=== PATIENT | male | born 1950 | race Caucasian/White ===

== ENCOUNTER → 2016-03-28 | Outpatient (REF) | payer MEDICARE ==
[2016-03-28 16:49] LABS: BASO % 0.3 % (0.0-1.0); EOS # 0.2 K/mm3 (0.0-0.50); EOS % 3.9 % (0.0-3.0); LARGE UNSTAINED CELL # 0.2 K/mm3 (0.0-0.4); LARGE UNSTAINED CELL % 3.1 % (0.0-4.0); LYMPH # 1.2 K/mm3 (1.5-4.5); LYMPH % 20.2 % (24.0-44.0); MEAN CORPUSCULAR HEMOGLOBIN 30.6 pg (27.0-33.0); MEAN CORPUSCULAR HGB CONC 34.4 g/dl (32.0-36.5); MEAN CORPUSCULAR VOLUME 88.8 fl (80.0-96.0); MONO # 0.5 K/mm3 (0.0-0.8); MONO % 8.1 % (0.0-5.0); NEUTROPHILS # 3.8 K/mm3 (1.8-7.7); NEUTROPHILS % 64.4 % (36.0-66.0); PLATELET COUNT, AUTOMATED 158 k/mm3 (150-450); RED CELL DISTRIBUTION WIDTH 12.4 % (11.5-14.5); WHITE BLOOD COUNT 5.8 K/mm3 (4.0-10.0)
[2016-03-28 16:59] LABS: ALBUMIN 4.2 GM/DL (3.2-5.2); ALKALINE PHOSPHATASE 87 U/L (45-117); ALT/SGPT 57 U/L (12-78); ANION GAP 8 MEQ/L (8-16); AST/SGOT 25 U/L (15-37); BILIRUBIN,TOTAL 0.5 MG/DL (0.2-1.0); BLOOD UREA NITROGEN 28 MG/DL (7-18); CALCIUM LEVEL 9.3 MG/DL (8.8-10.2); CARBON DIOXIDE LEVEL 32 MEQ/L (21-32); CHLORIDE LEVEL 101 MEQ/L (98-107); CHOLESTEROL LEVEL 198 MG/DL (<200); CREATININE FOR GFR 0.99 MG/DL (0.70-1.30); GLOMERULAR FILTRATION RATE > 60.0 (>49); GLUCOSE, FASTING 112 MG/DL (80-110); POTASSIUM SERUM 4.4 MEQ/L (3.5-5.1); SODIUM LEVEL 141 MEQ/L (136-145); TOTAL PROTEIN 7.2 GM/DL (6.4-8.2); TRIGLYCERIDES LEVEL 118 MG/DL (<150)
== END ==
LOC: M SFHCCAPE 08:38
PROVIDERS: ATTEND Physician Assistant
DX: I10 Essential (primary) hypertension (principal); E11.9 Type 2 diabetes mellitus without complications; E78.5 Hyperlipidemia, unspecified; Z12.5 Encounter for screening for malignant neoplasm of prostate
CPT/HCPCS: 80053; 80061; 82043; 83036; 84443; 85025; G0103

== ENCOUNTER → 2017-03-29 | Outpatient (REF) | payer MEDICARE, MEDICAID ==
[2017-03-29 19:38] LABS: ESTIMATED AVERAGE GLUCOSE 146 MG/DL (60-110); HEMOGLOBIN A1c 6.7 %
[2017-03-29 19:42] LABS: ALBUMIN 4.2 GM/DL (3.2-5.2); ALKALINE PHOSPHATASE 81 U/L (45-117); ALT/SGPT 41 U/L (12-78); ANION GAP 5 MEQ/L (8-16); AST/SGOT 22 U/L (7-37); BILIRUBIN,TOTAL 0.4 MG/DL (0.2-1.0); BLOOD UREA NITROGEN 29 MG/DL (7-18); CALCIUM LEVEL 9.3 MG/DL (8.8-10.2); CARBON DIOXIDE LEVEL 32 MEQ/L (21-32); CHLORIDE LEVEL 102 MEQ/L (98-107); CHOLESTEROL LEVEL 188 MG/DL (<200); CHOLESTEROL RISK RATIO 2.647 (<5); CREATININE FOR GFR 0.76 MG/DL (0.70-1.30); GLOMERULAR FILTRATION RATE > 60.0 (>49); GLUCOSE, FASTING 120 MG/DL (80-110); HDL CHOLESTEROL 71 MG/DL (>40); NON-HDL-C 117 MG/DL; POTASSIUM SERUM 4.3 MEQ/L (3.5-5.1); SODIUM LEVEL 139 MEQ/L (136-145); TOTAL PROTEIN 7.2 GM/DL (6.4-8.2); TRIGLYCERIDES LEVEL 100 MG/DL (<150)
== END ==
LOC: M SFHCCAPE 08:31
DX: I10 Essential (primary) hypertension (principal); E11.9 Type 2 diabetes mellitus without complications
CPT/HCPCS: 80053

== ENCOUNTER → 2017-10-08 | Outpatient (REF) | payer MEDICARE, MEDICAID ==
[2017-10-08 17:46] LABS: ALBUMIN 3.6 GM/DL (3.2-5.2); ALBUMIN/GLOBULIN RATIO 1.16 (1.00-1.93); ALKALINE PHOSPHATASE 77 U/L (45-117); ALT/SGPT 26 U/L (12-78); ANION GAP 9 MEQ/L (8-16); AST/SGOT 15 U/L (7-37); BILIRUBIN,TOTAL 0.3 MG/DL (0.2-1.0); BLOOD UREA NITROGEN 22 MG/DL (7-18); CALCIUM LEVEL 8.9 MG/DL (8.8-10.2); CARBON DIOXIDE LEVEL 27 MEQ/L (21-32); CHLORIDE LEVEL 108 MEQ/L (98-107); CHOLESTEROL LEVEL 146 MG/DL (<200); CHOLESTEROL RISK RATIO 2.561 (<5); GLOMERULAR FILTRATION RATE > 60.0 (>49); GLUCOSE, FASTING 107 MG/DL (70-100); HDL CHOLESTEROL 57 MG/DL (>40); LDL CHOLESTEROL 70.8 MG/DL (<100); NON-HDL-C 89 MG/DL; POTASSIUM SERUM 4.4 MEQ/L (3.5-5.1); SODIUM LEVEL 144 MEQ/L (136-145); TOTAL PROTEIN 6.7 GM/DL (6.4-8.2); TRIGLYCERIDES LEVEL 91 MG/DL (<150)
[2017-10-08 18:01] LABS: BASO # 0.1 10^3/uL (0.0-0.2); BASO % 1.1 % (0.0-1.0); EOS # 0.2 10^3/uL (0.0-0.50); EOS % 3.7 % (0.0-3.0); HEMOGLOBIN 14.5 g/dl (13.5-17.5); IMMATURE GRANULOCYTE % 0.3 % (0-3.0); LYMPH # 1.4 10^3/uL (1.5-4.5); LYMPH % 22.2 % (24.0-44.0); MEAN CORPUSCULAR HEMOGLOBIN 29.4 pg (27.0-33.0); MEAN CORPUSCULAR HGB CONC 32.2 g/dl (32.0-36.5); MEAN CORPUSCULAR VOLUME 91.1 fl (80.0-96.0); MONO # 0.7 10^3/uL (0.0-0.8); MONO % 10.7 % (0.0-5.0); NEUTROPHILS # 3.8 10^3/uL (1.8-7.7); PLATELET COUNT, AUTOMATED 161 10^3/uL (150-450); RED BLOOD COUNT 4.94 10^6/uL (4.30-6.10); RED CELL DISTRIBUTION WIDTH 12.7 % (11.5-14.5); WHITE BLOOD COUNT 6.2 10^3/uL (4.0-10.0)
[2017-10-08 18:47] LABS: ESTIMATED AVERAGE GLUCOSE 146 MG/DL (60-110); HEMOGLOBIN A1c 6.7 %
== END ==
LOC: M SFHCCAPE 07:57
DX: I10 Essential (primary) hypertension (principal); E11.9 Type 2 diabetes mellitus without complications
CPT/HCPCS: 84443

== ENCOUNTER → 2018-02-26 | Outpatient (CLI) | payer MEDICARE, MEDICAID | LOC: M CARPUL 10:13 | DX: R06.00 Dyspnea, unspecified (principal) | CPT/HCPCS: 93306 ==

== ENCOUNTER → 2018-03-25 | Outpatient (REF) | payer MEDICARE, MEDICAID ==
[2018-03-25 17:55] LABS: ALBUMIN 3.8 GM/DL (3.2-5.2); ALT/SGPT 35 U/L (12-78); BILIRUBIN,TOTAL 0.3 MG/DL (0.2-1.0); BLOOD UREA NITROGEN 23 MG/DL (7-18); CALCIUM LEVEL 8.9 MG/DL (8.8-10.2); CARBON DIOXIDE LEVEL 28 MEQ/L (21-32); CHLORIDE LEVEL 108 MEQ/L (98-107); CHOLESTEROL LEVEL 184 MG/DL (<200); CHOLESTEROL RISK RATIO 3.118 (<5); CREATININE FOR GFR 0.83 MG/DL (0.70-1.30); GLOMERULAR FILTRATION RATE > 60.0 (>49); GLUCOSE, FASTING 105 MG/DL (70-100); HDL CHOLESTEROL 59 MG/DL (>40); LDL CHOLESTEROL 108 MG/DL (<100); NON-HDL-C 125 MG/DL; POTASSIUM SERUM 4.3 MEQ/L (3.5-5.1); SODIUM LEVEL 144 MEQ/L (136-145); TOTAL PROTEIN 6.7 GM/DL (6.4-8.2); TRIGLYCERIDES LEVEL 86 MG/DL (<150)
[2018-03-25 18:22] LABS: BASO # 0.1 10^3/uL (0.0-0.2); BASO % 1.1 % (0.0-1.0); EOS # 0.3 10^3/uL (0.0-0.50); EOS % 4.1 % (0.0-3.0); HEMATOCRIT 46.9 % (42.0-52.0); LYMPH # 1.3 10^3/uL (1.5-4.5); LYMPH % 19.6 % (24.0-44.0); MEAN CORPUSCULAR HEMOGLOBIN 29.1 pg (27.0-33.0); MEAN CORPUSCULAR VOLUME 91.1 fl (80.0-96.0); MONO # 0.7 10^3/uL (0.0-0.8); MONO % 10.7 % (0.0-5.0); NEUTROPHILS # 4.2 10^3/uL (1.8-7.7); NEUTROPHILS % 64.2 % (36.0-66.0); PLATELET COUNT, AUTOMATED 162 10^3/uL (150-450); RED BLOOD COUNT 5.15 10^6/uL (4.30-6.10); WHITE BLOOD COUNT 6.6 10^3/uL (4.0-10.0)
[2018-03-25 18:57] LABS: HEMOGLOBIN A1c 6.6 %
== END ==
LOC: M SFHCCAPE 07:42
PROVIDERS: ATTEND Physician Assistant
DX: E11.9 Type 2 diabetes mellitus without complications (principal); I10 Essential (primary) hypertension

== ENCOUNTER → 2018-09-09 | Outpatient (CLI) | payer MEDICARE, MEDICAID ==
--- NOTE | 2018-09-09 09:29 | REP ---
Low-dose lung screening chest CT: Comparisons are 09/04/2017 and 10/05/2015. The study is performed without IV contrast. The images are presented at lung windowing only. There are no nodules or masses. This is unchanged. There are no infiltrates. There are no pleural effusions. This is unchanged. There is chronic curvilinear parenchymal scarring anteriorly inferiorly in the right upper lobe, inferiorly in the lingula and in the left lower lobe, unchanged. There is dependent atelectasis in the posterior lung ross, unchanged. Impression: There are no nodules or masses. There is chronic parenchymal scarring as described. Category 1 low-dose lung screening chest CT. The probability of malignancy is less than 1%. Depending on risk factors consider annual follow-up low-dose lung screening chest CT. Electronically Signed by Scott Kimball MD 09/09/2018 09:21 A
== END ==
LOC: M RAD 08:54
PROVIDERS: ATTEND Internal Medicine Pulmonary Disease
DX: Z87.891 Personal history of nicotine dependence (principal)

== ENCOUNTER → 2018-10-03 | Outpatient (REF) | payer MEDICARE, MEDICAID ==
[2018-10-03 16:58] LABS: BASO # 0.1 10^3/uL (0.0-0.2); BASO % 0.9 % (0.0-1.0); EOS # 0.3 10^3/uL (0.0-0.50); EOS % 5.4 % (0.0-3.0); HEMATOCRIT 45.7 % (42.0-52.0); HEMOGLOBIN 14.9 g/dl (13.5-17.5); LYMPH # 1.5 10^3/uL (1.5-4.5); LYMPH % 23.4 % (24.0-44.0); MEAN CORPUSCULAR HEMOGLOBIN 29.9 pg (27.0-33.0); MEAN CORPUSCULAR HGB CONC 32.6 g/dl (32.0-36.5); MEAN CORPUSCULAR VOLUME 91.8 fl (80.0-96.0); MONO # 0.7 10^3/uL (0.0-0.8); MONO % 11.2 % (0.0-5.0); NEUTROPHILS # 3.7 10^3/uL (1.8-7.7); NEUTROPHILS % 58.8 % (36.0-66.0); PLATELET COUNT, AUTOMATED 152 10^3/uL (150-450); RED BLOOD COUNT 4.98 10^6/uL (4.30-6.10); WHITE BLOOD COUNT 6.3 10^3/uL (4.0-10.0)
[2018-10-03 17:09] LABS: ALBUMIN 3.8 GM/DL (3.2-5.2); ALT/SGPT 25 U/L (12-78); BILIRUBIN,TOTAL 0.4 MG/DL (0.2-1.0); BLOOD UREA NITROGEN 23 MG/DL (7-18); CALCIUM LEVEL 9.1 MG/DL (8.8-10.2); CARBON DIOXIDE LEVEL 30 MEQ/L (21-32); CHLORIDE LEVEL 107 MEQ/L (98-107); CHOLESTEROL LEVEL 178 MG/DL (<200); GLOMERULAR FILTRATION RATE > 60.0 (>49); GLUCOSE, FASTING 113 MG/DL (70-100); HDL CHOLESTEROL 62 MG/DL (>40); LDL CHOLESTEROL 103 MG/DL (<100); NON-HDL-C 116 MG/DL; POTASSIUM SERUM 4.6 MEQ/L (3.5-5.1); SODIUM LEVEL 142 MEQ/L (136-145); TOTAL PROTEIN 6.7 GM/DL (6.4-8.2); TRIGLYCERIDES LEVEL 66 MG/DL (<150)
[2018-10-03 17:36] LABS: CREATININE, URINE 59.1 MG/DL; MALB URINE SIEMENS 5.4 MG/L; MAU/CREAT RATIO 9.1 MCG/MG (0.0-30.0)
[2018-10-03 18:01] LABS: HEMOGLOBIN A1c 6.4 %
== END ==
LOC: M SFHCCAPE 08:30
PROVIDERS: ATTEND Physician Assistant
DX: E11.9 Type 2 diabetes mellitus without complications (principal); I10 Essential (primary) hypertension; E78.5 Hyperlipidemia, unspecified; Z12.5 Encounter for screening for malignant neoplasm of prostate
CPT/HCPCS: 80053; 80061; 82043; 83036; 84443; 85025; G0103

== ENCOUNTER → 2019-04-15 | Outpatient (REF) | payer MEDICARE, MEDICAID ==
[2019-04-15 17:58] LABS: HEMOGLOBIN A1c 6.6 %
[2019-04-15 18:04] LABS: ALT/SGPT 27 U/L (12-78); BILIRUBIN,TOTAL 0.7 MG/DL (0.2-1.0); BLOOD UREA NITROGEN 22 MG/DL (7-18); CALCIUM LEVEL 9.1 MG/DL (8.8-10.2); CARBON DIOXIDE LEVEL 30 MEQ/L (21-32); CHLORIDE LEVEL 104 MEQ/L (98-107); CHOLESTEROL LEVEL 165 MG/DL (<200); CHOLESTEROL RISK RATIO 3.055 (<5); GLOMERULAR FILTRATION RATE > 60.0 (>49); GLUCOSE, FASTING 114 MG/DL (70-100); HDL CHOLESTEROL 54 MG/DL (>40); LDL CHOLESTEROL 94 MG/DL (<100); NON-HDL-C 111 MG/DL; POTASSIUM SERUM 4.4 MEQ/L (3.5-5.1); SODIUM LEVEL 140 MEQ/L (136-145); TOTAL PROTEIN 6.8 GM/DL (6.4-8.2); TRIGLYCERIDES LEVEL 85 MG/DL (<150)
[2019-04-15 18:09] LABS: BASO # 0.1 10^3/uL (0.0-0.2); BASO % 1.1 % (0.0-1.0); EOS # 0.3 10^3/uL (0.0-0.5); EOS % 4.5 % (0.0-3.0); HEMATOCRIT 49.3 % (42.0-52.0); HEMOGLOBIN 15.5 g/dl (13.5-17.5); LYMPH # 1.3 10^3/uL (1.5-5.0); LYMPH % 22.7 % (24.0-44.0); MEAN CORPUSCULAR HGB CONC 31.4 g/dl (32.0-36.5); MEAN CORPUSCULAR VOLUME 92.1 fl (80.0-96.0); MONO # 0.7 10^3/uL (0.0-0.8); MONO % 11.6 % (0.0-5.0); NEUTROPHILS # 3.4 10^3/uL (1.5-8.5); NEUTROPHILS % 59.9 % (36.0-66.0); PLATELET COUNT, AUTOMATED 133 10^3/uL (150-450); RED BLOOD COUNT 5.35 10^6/uL (4.30-6.10); WHITE BLOOD COUNT 5.6 10^3/uL (4.0-10.0)
[2019-04-15 18:21] LABS: MALB URINE SIEMENS < 5.0 MG/L; MAU/CREAT RATIO 11.6 MCG/MG (0.0-30.0)
== END ==
LOC: M SFHCCAPE 07:48
PROVIDERS: ATTEND Physician Assistant
DX: I10 Essential (primary) hypertension (principal); E11.9 Type 2 diabetes mellitus without complications

== ENCOUNTER 2019-05-21 13:06 | Inpatient (IN) | payer MEDICARE, MEDICAID ==
[~2019-05-21] VITALS: Ht 177.8 cm; Wt 107.7 kg
[2019-05-21] MEDS ORDERED: VITA500C19 PO (13:28)
[2019-05-21] MEDS ORDERED: METF500T13 PO (13:28)
[2019-05-21] MEDS ORDERED: HYDR25TAB PO (13:28)
[2019-05-21] MEDS ORDERED: ASPI81TA26 PO (13:28)
[2019-05-21] MEDS ORDERED: SPIR1CAP INH (13:28)
[2019-05-21] MEDS ORDERED: CARDCAP3 PO (13:28)
[2019-05-21] MEDS ORDERED: ATOR1TAB19 PO (13:28)
[2019-05-21] MEDS ORDERED: BREO1INH3 (13:28)
[2019-05-21] MEDS ORDERED: ATEN100T PO (13:28)
[2019-05-21] MEDS ORDERED: ADVA230A INH (13:28)
[2019-05-21] MEDS ORDERED: LOSA50TA88 PO (13:28)
[2019-05-21] MEDS ORDERED: ALBU8.5H INH (13:28)
[2019-05-21] MEDS ORDERED: OSEL75CA PO (13:30)
[2019-05-21 13:52] LABS: BASO # 0.1 10^3/uL (0.0-0.2); BASO % 1.5 % (0.0-1.0); EOS # 0.1 10^3/uL (0.0-0.5); EOS % 1.7 % (0.0-3.0); HEMATOCRIT 46.2 % (42.0-52.0); HEMOGLOBIN 15.3 g/dl (13.5-17.5); LYMPH # 0.5 10^3/uL (1.5-5.0); LYMPH % 8.9 % (24.0-44.0); MEAN CORPUSCULAR HEMOGLOBIN 29.5 pg (27.0-33.0); MEAN CORPUSCULAR HGB CONC 33.1 g/dl (32.0-36.5); MEAN CORPUSCULAR VOLUME 89.2 fl (80.0-96.0); MONO # 0.8 10^3/uL (0.0-0.8); MONO % 15.7 % (0.0-5.0); NEUTROPHILS # 3.8 10^3/uL (1.5-8.5); NEUTROPHILS % 71.8 % (36.0-66.0); PLATELET COUNT, AUTOMATED 125 10^3/uL (150-450); RED BLOOD COUNT 5.18 10^6/uL (4.30-6.10); WHITE BLOOD COUNT 5.3 10^3/uL (4.0-10.0)
[2019-05-21 14:05] LABS: BLOOD UREA NITROGEN 19 MG/DL (7-18); CALCIUM LEVEL 8.6 MG/DL (8.8-10.2); CARBON DIOXIDE LEVEL 28 MEQ/L (21-32); CHLORIDE LEVEL 103 MEQ/L (98-107); CREATININE FOR GFR 0.92 MG/DL (0.70-1.30); GLOMERULAR FILTRATION RATE > 60.0 (>49); GLUCOSE, FASTING 131 MG/DL (70-100); POTASSIUM SERUM 4.1 MEQ/L (3.5-5.1); SODIUM LEVEL 138 MEQ/L (136-145)
--- NOTE | 2019-05-21 14:21 | REP ---
CHEST, SINGLE VIEW: Single view of the chest is performed. Comparison 05/25/2015. There is linear fibrotic change in both lung bases. I see no definite acute infiltrate. There is mild cardiomegaly. There is some tortuosity of the thoracic aorta. Mediastinal silhouette is unchanged. IMPRESSION: Chronic changes and cardiomegaly without evidence of superimposed acute infiltrate. Electronically Signed by Scott Negrete MD 05/21/2019 04:14 P
[2019-05-21] MEDS ORDERED: OSELTAMIVIR PHOSPHATE 75 MG CAP (TAMIFLU) PO ONE (14:45)
[2019-05-21] MEDS ORDERED: ACETAMINOPHEN 500 MG TAB PO ONE (14:45)
[2019-05-21] MEDS ORDERED: IPRATROPIUM 0.5MG/ALBUTEROL 2.5MG INH SOL UD 3ML (DUONEB)(J7620) NEB ONE (14:45)
[2019-05-21] MEDS ORDERED: ALBUTEROL SULFATE 2.5 MG/0.5 ML INH NEB SOLN INH ONE (14:45)
[2019-05-21 15:02] LABS: CK-MB VALUE MASS < 1.0 NG/ML (<3.6); CPK CREATINE PHOSPHOKINASE 114 U/L (39-308); MB/CK RELATIVE INDEX 0.88 (< OR =4); NT-PRO BNP 186 PG/ML (<125); TROPONIN I < 0.02 NG/ML (< 0.10)
[2019-05-21] MEDS ORDERED: dexameTHASONE 20 MG/5 ML VIAL (J1100) IV ONE (15:45)
[2019-05-21] MEDS ORDERED: ASCO500T PO (17:19)
[2019-05-21] MEDS ORDERED: IBUP-1720 PO (17:19)
[2019-05-21] MEDS: HumaLOG INSULIN (NovoLOG) PER UNIT SC SCH ×2 (17:30→21:00)
[2019-05-21] MEDS ORDERED: GLUCAGON FOR INJ 1 MG VIAL (J1610) SC PRN (17:45)
[2019-05-21] MEDS ORDERED: DEXTROSE 50% 50 ML SYRINGE IV PRN (17:45)
[2019-05-21] MEDS ORDERED: LEVALBUTEROL 1.25 MG/0.5 ML CONCENTRATE NEB INH PRN (17:45)
[2019-05-21] MEDS ORDERED: GLUCOSE 4 GM CHEW TABLET PO PRN (17:45)
[2019-05-21] MEDS: LEVALBUTEROL 1.25 MG/0.5 ML CONCENTRATE NEB INH SCH ×2 (19:12→23:54)
[2019-05-21 20:00] VITALS: BP 138/74
[2019-05-21 20:20] VITALS: O2SAT 91
[2019-05-21] MEDS: ADVAIR HFA 230/21MCG INHALER INH SCH (20:20)
[2019-05-21] MEDS: methylPREDNISolone INJ 125 MG/2 ML VIAL (J2930) IV SCH (21:24)
[2019-05-21] MEDS: guaiFENesin ER 600 MG TAB PO SCH (21:25)
[2019-05-21] MEDS: LOSARTAN 50 MG TAB PO SCH (21:25)
[2019-05-21] MEDS: OSELTAMIVIR PHOSPHATE 75 MG CAP (TAMIFLU) PO SCH (21:25)
[2019-05-22] MEDS: LEVALBUTEROL 1.25 MG/0.5 ML CONCENTRATE NEB INH SCH ×6 (04:22→23:45)
[2019-05-22] MEDS: methylPREDNISolone INJ 125 MG/2 ML VIAL (J2930) IV SCH ×4 (04:42→21:43)
[2019-05-22 04:58] VITALS: BP 119/70
--- NOTE | 2019-05-22 06:54 | ECGEPIP ---
[facility] - ED Test Date: 2019-05-21 Pat Name: LIZY FLORENCE Department: Room: - Gender: Male Hand Reamer: : [id number] Requested By: GORDON Burleson Order Number: [id number] Reading MD: Phillip Benavidez Measurements Intervals [place] Rate: 88 P: 65 MS: 171 QRS: 37 QRSD: 98 T: 31 QT: 337 QTc: 410 Interpretive Statements SINUS RHYTHM POSSIBLE PRIOR INFERIOR INFARCT POOR R WAVE PROGRESSION BASELINE ARTIFACT AFFECTS INTERPRETATION NO PRIORS FOR COMPARISON Electronically Signed on 05-22-2019 6:54:14 EST by Phillip Benavidez
[2019-05-22 07:45] LABS: HEMATOCRIT 45.6 % (42.0-52.0); HEMOGLOBIN 14.7 g/dl (13.5-17.5); MEAN CORPUSCULAR HEMOGLOBIN 28.8 pg (27.0-33.0); MEAN CORPUSCULAR HGB CONC 32.2 g/dl (32.0-36.5); MEAN CORPUSCULAR VOLUME 89.4 fl (80.0-96.0); PLATELET COUNT, AUTOMATED 117 10^3/uL (150-450); WHITE BLOOD COUNT 7.2 10^3/uL (4.0-10.0)
[2019-05-22] MEDS: TIOTROPIUM INHALER/CAPSULE (SPIRIVA) INH SCH (07:51)
[2019-05-22] MEDS ORDERED: metFORMIN (GLUCOPHAGE) 500 MG TAB PO SCH (08:00)
[2019-05-22 08:12] LABS: BLOOD UREA NITROGEN 19 MG/DL (7-18); CALCIUM LEVEL 8.5 MG/DL (8.8-10.2); CARBON DIOXIDE LEVEL 28 MEQ/L (21-32); CHLORIDE LEVEL 103 MEQ/L (98-107); CHOLESTEROL LEVEL 120 MG/DL (<200); CHOLESTEROL RISK RATIO 1.764 (<5); CREATININE FOR GFR 0.88 MG/DL (0.70-1.30); GLOMERULAR FILTRATION RATE > 60.0 (>49); GLUCOSE, FASTING 185 MG/DL (70-100); HDL CHOLESTEROL 68 MG/DL (>40); LDL CHOLESTEROL 42 MG/DL (<100); MAGNESIUM LEVEL 2.2 MG/DL (1.8-2.4); NON-HDL-C 52 MG/DL; POTASSIUM SERUM 4.1 MEQ/L (3.5-5.1); SODIUM LEVEL 137 MEQ/L (136-145); THYROID STIMULATING HORMONE 0.223 uIU/ML (0.358-3.740); TRIGLYCERIDES LEVEL 52 MG/DL (<150)
[2019-05-22] MEDS: LOSARTAN 50 MG TAB PO SCH ×2 (08:57→21:44)
[2019-05-22] MEDS: guaiFENesin ER 600 MG TAB PO SCH ×2 (08:57→21:44)
[2019-05-22] MEDS: hydroCHLOROthiazide 25 MG TAB PO SCH (08:58)
[2019-05-22] MEDS: ATORVASTATIN 10 MG TAB PO SCH (08:58)
[2019-05-22] MEDS: ASCORBIC ACID 500 MG TAB PO SCH (08:58)
[2019-05-22] MEDS: ASPIRIN 81 MG ENTERIC TAB PO SCH (08:58)
[2019-05-22] MEDS: OSELTAMIVIR PHOSPHATE 75 MG CAP (TAMIFLU) PO SCH ×2 (08:58→21:44)
[2019-05-22] MEDS: atenoloL 50 MG TAB PO SCH (08:58)
[2019-05-22 09:03] LABS: HEMOGLOBIN A1c 6.5 %
[2019-05-22] MEDS: HumaLOG INSULIN (NovoLOG) PER UNIT SC SCH ×4 (09:05→21:43)
[2019-05-22 09:20] LABS: FREE THYROXINE INDEX 2.4 % (1.4-3.8); T UPTAKE 33 % (33-40); THYROXINE (T4) 7.3 UG/DL (4.5-12.0)
[2019-05-22] MEDS ORDERED: ISOVUE-370 76% 100ML VIAL (Q9967) As Ordered ONE (09:37)
[2019-05-22] MEDS: ADVAIR HFA 230/21MCG INHALER INH SCH ×2 (10:00→20:29)
--- NOTE | 2019-05-22 10:32 | REP ---
CT pulmonary angiogram: With IV contrast. History: Hypoxia, rule out pulmonary embolus. Comparison noncontrast screening CT study of the chest September 09, 2018. Contrast dose: 75 mL of Isovue [address] technique: Helical scanning is acquired and overlapping 1.5 mm and contiguous 3 mm axial images are reformatted. In addition, maximum intensity projection and multiplanar re-formation images are generated in sagittal and coronal imaging projections. CT pulmonary angiographic findings: There is good opacification of the pulmonary arterial tree. There is no vessel cutoff or filling defect to suggest pulmonary embolus. Thoracic aorta shows no evidence of aneurysm or dissection. The ascending aorta measures 4.2 cm in AP dimension at the level of the right main pulmonary artery. No pleural or pericardial effusion is seen. No hilar or mediastinal mass or adenopathy is observed. There are coarse linear atelectatic changes in the lower lobes bilaterally. There are linear fibrotic changes in the lingula, right middle lobe and right upper lobe which are unchanged from the September 09, 2018 study. No definite infiltrate. No mass or significant pulmonary nodule is appreciated. Impression: No CT evidence of pulmonary embolus. Bilateral areas of linear fibrosis. Bilateral lower lobe discoid atelectasis. Otherwise no acute disease. Electronically Signed by Garland Frye MD 05/22/2019 08:01 P
--- NOTE | 2019-05-22 14:43 | HPE ---
DATE OF ADMISSION: 05/21/2019 CHIEF COMPLAINT: Shortness of breath, fever. HISTORY OF PRESENT ILLNESS: This is a 69-year-old male who chronic obstructive pulmonary disease (COPD), diabetes, hypertension, obesity, hyperlipidemia, who presents to [facility] with 2-day history of myalgias, fever, chills, cough, shortness of breath. Had to put an extra blanket on last night and had taken ibuprofen two tablets at midnight, 3 a.m., and 7 a.m. Went to see his primary care provider today and was found to be positive for the flu. Patient complains of achiness all over his body. No nausea, vomiting, diarrhea. Had breakfast okay this morning. No dizziness. Lightheadedness, chest pain, pressure, or tightness. Denies any upper or lower extremity weakness. He was exposed to his grandson on Sunday, who was diagnosed with the flu. His shortness of breath is worse when he ambulates. He was found to be hypoxic in the emergency room (ER) and was 84% on room air. Chest x-ray showed no acute infiltrate consolidation, chronic changes with linear fibrosis in both lung bases. No definite acute infiltrate. Mild cardiomegaly at the thoracic aorta. Unchanged mediastinal silhouette. Complete blood count (CBC) was normal with 72% neutrophils. Brain natriuretic peptide (BNP) was 186, and he was not tachycardic. Hospitalist was asked to admit for acute hypoxic failure requiring supplemental oxygen secondary to influenza. Cough productive of white sputum, nasal congestion. No headaches. PAST MEDICAL HISTORY: 1. Hypertension. 2. Hyperlipidemia. 3. Obesity. 4. Type 2 diabetes. 5. COPD. ALLERGIES: SULFA. PAST SURGICAL HISTORY: Tonsillectomy. HOME MEDICATIONS: - aspirin 81 daily - hydrochlorothiazide 25 daily - losartan 50 mg twice a day - metformin 500 twice a day with meals - hydrochlorothiazide 25 daily - atenolol 100 daily - Spiriva 18 mcg inhaled daily - Advair HFA 115/21 two puffs twice a day - vitamin C 500 as directed - multivitamin 1 mg daily - ibuprofen 200 mg as needed every 6 hours for pain or fever FAMILY HISTORY: Father with arthritis, heart disease. Mother with arthritis and heart failure. Siblings: No medical problems. Four sons, one daughter. Lives at home with his . Former smoker. Quit about 10 years ago. 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 REVIEW OF SYSTEMS: Per history of present illness (HPI). A 12-point system otherwise negative. PHYSICAL EXAMINATION: 84% on room air, temperature 101, pulse 80, respiratory rate 22, blood pressure 142/69. GENERAL: Awake, alert, oriented to person, place, and time. No respiratory distress. Able to speak in full sentences. No use of accessory respiratory muscles. Trachea is midline. No stridor of the neck. Pupils round and reactive. Moist mucous membranes. LUNGS: Diminished, bilateral expiratory wheezing, prolonged expiration. HEART: S1, S2, sinus rhythm. ABDOMEN: Obese, soft, nontender, nondistended. EXTREMITIES: Trace edema. LABORATORY DATA: White count 5.3, hemoglobin 15, hematocrit 46, platelet count 125, 71% neutrophils. Chemistry: Sodium 138, potassium 4, chloride 103, bicarbonate 28, BUN 19, creatinine 0.92, glucose 131, calcium 8.6. Total CK 114, MB fraction less than 1, relative index 0.88, troponin less than 0.02. BNP of 186. IMAGING STUDY: Chest x-ray: Chronic linear fibrosis at the basis. No acute infiltrate. Tortuosity of thoracic aorta. Mild cardiomegaly. Chronic stable changes. No evidence of superimposed acute infiltrate. ASSESSMENT AND PLAN: This is a 69-year-old fraser with history of chronic obstructive pulmonary disease (COPD), hypertension, hyperlipidemia, obesity, recently diagnosed with influenza, found to be hypoxic, 84% on room air, and admitted for COPD exacerbation, most likely brought on by acute influenza. IMPRESSION: Acute hypoxic respiratory failure with oxygen saturation of 84% on room air on presentation secondary to influenza as well as COPD exacerbation. Patient will be admitted for supportive care, given intravenous steroids, nebulizer treatments, Tamiflu. Monitor for worsening distress. Keep oxygen saturations at 88-92% at all times. Influenza A URI most likely triggered copd exacerbation and acute hypoxia. on tamiflu. droplet precautions. supportive care with supplemental oxygen 88-92% o2 sat goal. COPD exacerbation. Patient has wheezing on exam, brought on by acute influenza. Patient has been given Tamiflu twice a day 75 mg along with Solu-Medrol every 6 hours, nebulizers every 4 and every 1 hour as needed. Hypertension. May be resumed on his home medications with holding parameters for systolic pressure that is less than 100. Hyperlipidemia. Check fasting lipid profile in the morning. Type 2 diabetes. Consistent-carbohydrate diet and check A1c in the morning. Obesity. Body mass index (BMI) of 34. Probable obstructive sleep apnea. Outpatient followup with a sleep study. Deep vein thrombosis prophylaxis. Patient would prefer no injections with Lovenox or heparin. Therefore, we will give compression stockings. CODE STATUS: Is a full code. MTDD
[2019-05-22 15:06] VITALS: BP 116/69
[2019-05-22 16:20] VITALS: O2SAT 90
[2019-05-22 17:18] LABS: ABG BASE EXCESS -0.3 (-2.0-2.0); ABG HCO3 24.3 MEQ/L (22.0-26.0); ABG O2 SATURATION 89.3 % (95.0-99.0); ABG PARTIAL PRESSURE CO2 39.9 mmHg (35.0-45.0); ABG PARTIAL PRESSURE O2 57.4 mmHg (75.0-100.0); ABG TOTAL CO2 25.6 MEQ/L (23.0-31.0); ABG pH (ARTERIAL) 7.403 UNITS (7.350-7.450)
[2019-05-22 18:14] LABS: CK-MB VALUE MASS 1.4 NG/ML (<3.6); CPK CREATINE PHOSPHOKINASE 111 U/L (39-308); MB/CK RELATIVE INDEX 1.26 (< OR =4); TROPONIN I < 0.02 NG/ML (< 0.10)
[2019-05-22 20:21] VITALS: BP 123/67
[2019-05-22] MEDS: LEVEMIR (INSULIN DETEMIR) 1 UNITS/0.01ML SC SCH (21:43)
[2019-05-23] MEDS: LEVALBUTEROL 1.25 MG/0.5 ML CONCENTRATE NEB INH SCH ×6 (03:12→22:27)
[2019-05-23] MEDS: methylPREDNISolone INJ 125 MG/2 ML VIAL (J2930) IV SCH ×3 (04:04→21:30)
[2019-05-23 06:10] VITALS: BP 133/74
[2019-05-23 06:55] LABS: HEMATOCRIT 48.5 % (42.0-52.0); HEMOGLOBIN 15.8 g/dl (13.5-17.5); MEAN CORPUSCULAR HEMOGLOBIN 29.4 pg (27.0-33.0); MEAN CORPUSCULAR HGB CONC 32.6 g/dl (32.0-36.5); MEAN CORPUSCULAR VOLUME 90.1 fl (80.0-96.0); PLATELET COUNT, AUTOMATED 126 10^3/uL (150-450); RED BLOOD COUNT 5.38 10^6/uL (4.30-6.10); WHITE BLOOD COUNT 12.3 10^3/uL (4.0-10.0)
[2019-05-23 07:15] LABS: BLOOD UREA NITROGEN 29 MG/DL (7-18); CALCIUM LEVEL 8.8 MG/DL (8.8-10.2); CARBON DIOXIDE LEVEL 28 MEQ/L (21-32); CHLORIDE LEVEL 105 MEQ/L (98-107); CREATININE FOR GFR 0.84 MG/DL (0.70-1.30); GLOMERULAR FILTRATION RATE > 60.0 (>49); GLUCOSE, FASTING 168 MG/DL (70-100); POTASSIUM SERUM 4.3 MEQ/L (3.5-5.1); SODIUM LEVEL 139 MEQ/L (136-145)
[2019-05-23] MEDS: HumaLOG INSULIN (NovoLOG) PER UNIT SC SCH ×4 (07:30→21:29)
[2019-05-23] MEDS: ADVAIR HFA 230/21MCG INHALER INH SCH (07:36)
[2019-05-23] MEDS: TIOTROPIUM INHALER/CAPSULE (SPIRIVA) INH SCH (07:37)
[2019-05-23] MEDS: LEVEMIR (INSULIN DETEMIR) 1 UNITS/0.01ML SC SCH ×2 (09:20→21:30)
[2019-05-23] MEDS: ASPIRIN 81 MG ENTERIC TAB PO SCH (09:20)
[2019-05-23] MEDS: OSELTAMIVIR PHOSPHATE 75 MG CAP (TAMIFLU) PO SCH ×2 (09:21→21:29)
[2019-05-23] MEDS: guaiFENesin ER 600 MG TAB PO SCH ×2 (09:21→21:29)
[2019-05-23] MEDS: ATORVASTATIN 10 MG TAB PO SCH (09:21)
[2019-05-23] MEDS: ASCORBIC ACID 500 MG TAB PO SCH (09:21)
[2019-05-23] MEDS: atenoloL 50 MG TAB PO SCH (09:21)
[2019-05-23] MEDS: hydroCHLOROthiazide 25 MG TAB PO SCH (09:22)
[2019-05-23] MEDS: LOSARTAN 50 MG TAB PO SCH ×2 (09:22→21:29)
[2019-05-23] MEDS ORDERED: LEVALBUTEROL 1.25 MG/0.5 ML CONCENTRATE NEB NEB ONE (10:15)
--- NOTE | 2019-05-23 10:53 | IPN ---
DATE: 05/22/2019 The patient is seen and examined at the bedside. Chart has been reviewed. He complains of dyspnea while ambulating to the bathroom about 3-5 feet. The patient was noted to have oxygen saturations of 88% on six liters nasal cannula, on Tamiflu, still with a cough, difficult to expectorate, productive. Sputum culture still pending. Methicillin-resistant Staphylococcus aureus (MRSA) screen was not detected. Respiratory panel was positive for influenza A. He is afebrile. No chills overnight. No chest pain. Maximum temperature (T-max) of 101 at 1307 yesterday, current temperature 97.8, pulse 86, respiratory rate 16, blood pressure 116/69, 90% on six liters nasal cannula. GENERAL: The patient is awake, alert, oriented to person, place and time. No use of respiratory accessory muscles. No jugular venous distention (JVD) or thyromegaly. LUNGS: Diminished breath sounds with crackles at bilateral bases. HEART: S1, S2, sinus rhythm. ABDOMEN: Obese, soft, nontender, nondistended. EXTREMITIES: Positive edema. LABORATORY DATA: White count 7.2, hemoglobin 14, hematocrit 45, platelet count 117. Sodium 137, potassium 4, chloride 103, bicarbonate 28, BUN 19, creatinine 0.88, glucose 185, A1c 6.5, troponin less than 0.02. MICROBIOLOGY: Influenza A. Sputum culture pending. ASSESSMENT AND PLAN: This is a 69-year-old male with history of chronic obstructive pulmonary disease (COPD), obesity, type 2 diabetes, hypertension, and hyperlipidemia who presented with fevers, myalgias, found to have influenza A after being exposed to his grandson who is positive for influenza A. ACUTE ISSUES: 1. Acute hypoxic respiratory failure requiring supplemental oxygen. Currently on 10 liters nasal cannula, saturating 90%, maximize on supportive therapy with Spiriva, Solu-Medrol 80 every six hours, Advair, Xopenex every four and every one hourly. Awaiting sputum culture results. 2. Chronic obstructive pulmonary disease (COPD) exacerbation. Currently on Solu-Medrol, nebulizer. CT chest shows no evidence of pulmonary embolus, aneurysm, or dissection, atelectasis bilateral lower lobes and linear fibrosis in the lingula, right middle, right upper lobe unchanged from August 2018 without definite infiltrate, mass or pulmonary nodule appreciated. 3. Hypertension. Resumed on his home dose of atenolol, hydrochlorothiazide, losartan. 4. Obesity, body mass index (BMI) of 34, complicating his care. 5. Type 2 diabetes. A1c is at goal. Currently with steroid-induced hyperglycemia. Due to recent contrast study, the patient's metformin has been discontinued. We will place on long-acting Levemir insulin for better control of steroid-induced hyperglycemia.
[2019-05-23] MEDS: MOXIFLOXACIN HCL 400 MG in IV 1 EA IV SCH (11:40)
[2019-05-23] MEDS ORDERED: MONTELUKAST 10 MG TAB PO ONE (11:45)
[2019-05-23] MEDS ORDERED: CETIRIZINE (ZyrTEC) 10 MG TAB PO ONE (11:45)
[2019-05-23] MEDS: FLUTICASONE PROP 0.05% NASAL SPRAY 16 GM (FLONASE) NARES SCH ×2 (11:45→21:30)
[2019-05-23 15:33] VITALS: BP 118/63
[2019-05-23 21:17] VITALS: BP 138/79
[2019-05-24] MEDS: LEVALBUTEROL 1.25 MG/0.5 ML CONCENTRATE NEB INH SCH ×6 (03:43→23:17)
[2019-05-24 06:19] VITALS: BP 125/75
[2019-05-24 06:54] LABS: HEMATOCRIT 46.8 % (42.0-52.0); MEAN CORPUSCULAR HEMOGLOBIN 28.9 pg (27.0-33.0); MEAN CORPUSCULAR HGB CONC 32.1 g/dl (32.0-36.5); MEAN CORPUSCULAR VOLUME 90.2 fl (80.0-96.0); PLATELET COUNT, AUTOMATED 148 10^3/uL (150-450); RED BLOOD COUNT 5.19 10^6/uL (4.30-6.10); WHITE BLOOD COUNT 10.8 10^3/uL (4.0-10.0)
[2019-05-24 07:11] LABS: BLOOD UREA NITROGEN 25 MG/DL (7-18); CALCIUM LEVEL 8.7 MG/DL (8.8-10.2); CARBON DIOXIDE LEVEL 29 MEQ/L (21-32); CHLORIDE LEVEL 105 MEQ/L (98-107); CREATININE FOR GFR 0.78 MG/DL (0.70-1.30); GLOMERULAR FILTRATION RATE > 60.0 (>49); GLUCOSE, FASTING 143 MG/DL (70-100); POTASSIUM SERUM 4.1 MEQ/L (3.5-5.1); SODIUM LEVEL 140 MEQ/L (136-145)
[2019-05-24] MEDS: TIOTROPIUM INHALER/CAPSULE (SPIRIVA) INH SCH (07:28)
[2019-05-24] MEDS: HumaLOG INSULIN (NovoLOG) PER UNIT SC SCH ×4 (07:30→21:00)
--- NOTE | 2019-05-24 07:38 | IPN ---
DATE: 05/23/2019 SUBJECTIVE: Patient remains afebrile but had significant hypoxia yesterday requiring 10 units of high-flow oxygen with Acapella. Patient was able to breathe a little easier, said that he did not have any breathing treatments after 9:30 in the evening and was distressed this morning with saturations of 84% when he woke up, he used his Acapella and requested breathing treatments. He also complains of nasal congestion. Patient is continued on Solu-Medrol, nebulizer treatments, supplemental oxygen and being treated for influenza with Tamiflu. He is compliant with medications. Says that he feels winded when he tries to walk outside the room but oxygen saturation picks up when he uses his Acapella. Temperature 98.6, pulse 68, respiratory rate 20, blood pressure 133/74, 90% on one liter nasal cannula, 86% on room air, 94% on high-flow five liters. GENERALLY: Patient is awake, alert, oriented, able to speak in full sentences, no respiratory distress, tracheal deviation, cyanosis. Moist mucous membranes. Congested nares and congested turbinates and sinus tenderness in the maxillary sinuses bilaterally. Some pharyngeal erythema. No tonsillar exudates. No jugular venous distention (JVD), thyromegaly, cervical lymphadenopathy. LUNGS: Diminished with faint wheezing bilaterally, crackles. HEART: S1, S2, sinus rhythm. ABDOMEN: Obese, soft, nontender, nondistended. EXTREMITIES: No cyanosis or clubbing. LABORATORY DATA: White count 12, hemoglobin 15, hematocrit 48, platelet count 126. Sodium 139, potassium 4, chloride 105, bicarbonate 28, BUN 29, creatinine 0.84, glucose 168. ASSESSMENT AND PLAN: This is a 69-year-old male with history of chronic obstructive pulmonary disease (COPD), obesity, type 2 diabetes, hypertension, metabolic syndrome, hyperlipidemia, presented with fevers and myalgias after being exposed to his grandson, positive for influenza. He was found to have the following issues: 1. Acute hypoxic respiratory failure requiring supplemental oxygen. Was 84% on room air on admission and still desaturates. Patient is being treated for chronic obstructive pulmonary disease (COPD) exacerbation as well as influenza with Tamiflu as well as steroids. Antibiotics will be added for anti-inflammatory effect for 5 days. 2. Chronic obstructive pulmonary disease (COPD) exacerbation brought on by influenza A. Currently on IV Solu-Medrol, nebulizer treatments, and Xopenex every 4 hours and every 1 hour as needed. May continue his home dose of Spiriva. 3. Rhinitis. Patient will be started on some Zyrtec, Singulair, Flonase. Supportive care. 4. Mucus plugging. The patient is currently on Acapella, to improve drainage, pulmonary toilet. Respiratory therapy has been consulted. 5. Hypertension. Resumed on atenolol. 6. Obesity. Body mass index (BMI) of 34 complicating his care. 7. Type 2 diabetes with steroid induced hyperglycemia. Currently on Levemir, insulin sliding scale, hypoglycemic protocol, and finger sticks before food and nightly. Patient is not medically stable for discharge today. Will need 1-2 more days for tapering of steroids and improvement with his significant hypoxia.
[2019-05-24] MEDS: ASPIRIN 81 MG ENTERIC TAB PO SCH (08:03)
[2019-05-24] MEDS: CETIRIZINE (ZyrTEC) 10 MG TAB PO SCH (08:03)
[2019-05-24] MEDS: FLUTICASONE PROP 0.05% NASAL SPRAY 16 GM (FLONASE) NARES SCH ×2 (08:03→21:27)
[2019-05-24] MEDS: LEVEMIR (INSULIN DETEMIR) 1 UNITS/0.01ML SC SCH ×2 (08:04→21:28)
[2019-05-24] MEDS: methylPREDNISolone INJ 125 MG/2 ML VIAL (J2930) IV SCH ×2 (08:04→21:27)
[2019-05-24] MEDS: OSELTAMIVIR PHOSPHATE 75 MG CAP (TAMIFLU) PO SCH ×2 (08:04→21:27)
[2019-05-24] MEDS: guaiFENesin ER 600 MG TAB PO SCH ×2 (08:04→21:27)
[2019-05-24] MEDS: ATORVASTATIN 10 MG TAB PO SCH (08:04)
[2019-05-24] MEDS: ASCORBIC ACID 500 MG TAB PO SCH (08:05)
[2019-05-24] MEDS: hydroCHLOROthiazide 25 MG TAB PO SCH (08:05)
[2019-05-24] MEDS: atenoloL 50 MG TAB PO SCH (08:05)
[2019-05-24] MEDS: MONTELUKAST 10 MG TAB PO SCH (08:05)
[2019-05-24] MEDS: LOSARTAN 50 MG TAB PO SCH ×2 (08:06→21:28)
[2019-05-24] MEDS: MOXIFLOXACIN HCL 400 MG in IV 1 EA IV SCH (10:08)
[2019-05-24 14:56] VITALS: BP 117/73
[2019-05-24 20:00] VITALS: BP 123/70
[2019-05-25] MEDS: LEVALBUTEROL 1.25 MG/0.5 ML CONCENTRATE NEB INH SCH ×3 (03:29→11:04)
[2019-05-25 06:00] VITALS: BP 125/70
[2019-05-25 06:58] LABS: HEMOGLOBIN 15.8 g/dl (13.5-17.5); MEAN CORPUSCULAR HGB CONC 32.2 g/dl (32.0-36.5); MEAN CORPUSCULAR VOLUME 89.9 fl (80.0-96.0); PLATELET COUNT, AUTOMATED 142 10^3/uL (150-450); RED BLOOD COUNT 5.45 10^6/uL (4.30-6.10); WHITE BLOOD COUNT 8.5 10^3/uL (4.0-10.0)
[2019-05-25 07:17] LABS: BLOOD UREA NITROGEN 27 MG/DL (7-18); CARBON DIOXIDE LEVEL 28 MEQ/L (21-32); CHLORIDE LEVEL 105 MEQ/L (98-107); CREATININE FOR GFR 0.78 MG/DL (0.70-1.30); GLOMERULAR FILTRATION RATE > 60.0 (>49); GLUCOSE, FASTING 161 MG/DL (70-100); SODIUM LEVEL 138 MEQ/L (136-145)
[2019-05-25] MEDS: TIOTROPIUM INHALER/CAPSULE (SPIRIVA) INH SCH (07:25)
[2019-05-25] MEDS: HumaLOG INSULIN (NovoLOG) PER UNIT SC SCH ×2 (07:30→12:00)
[2019-05-25] MEDS: methylPREDNISolone INJ 125 MG/2 ML VIAL (J2930) IV SCH (08:21)
[2019-05-25] MEDS: FLUTICASONE PROP 0.05% NASAL SPRAY 16 GM (FLONASE) NARES SCH (08:21)
[2019-05-25] MEDS: LEVEMIR (INSULIN DETEMIR) 1 UNITS/0.01ML SC SCH (08:22)
[2019-05-25] MEDS: OSELTAMIVIR PHOSPHATE 75 MG CAP (TAMIFLU) PO SCH (08:23)
[2019-05-25] MEDS: ATORVASTATIN 10 MG TAB PO SCH (08:23)
[2019-05-25] MEDS: atenoloL 50 MG TAB PO SCH (08:23)
[2019-05-25] MEDS: MONTELUKAST 10 MG TAB PO SCH (08:23)
[2019-05-25] MEDS: CETIRIZINE (ZyrTEC) 10 MG TAB PO SCH (08:23)
[2019-05-25] MEDS: hydroCHLOROthiazide 25 MG TAB PO SCH (08:23)
[2019-05-25] MEDS: guaiFENesin ER 600 MG TAB PO SCH (08:23)
[2019-05-25] MEDS: ASPIRIN 81 MG ENTERIC TAB PO SCH (08:23)
[2019-05-25 08:24] VITALS: BP 155/75
[2019-05-25] MEDS: ASCORBIC ACID 500 MG TAB PO SCH (08:24)
[2019-05-25] MEDS: LOSARTAN 50 MG TAB PO SCH (08:24)
[2019-05-25] MEDS ORDERED: MUCI600T31 PO (09:58)
[2019-05-25] MEDS ORDERED: OSEL75CA PO (09:58)
[2019-05-25] MEDS ORDERED: PRED10TA2 PO (09:58)
[2019-05-25] MEDS ORDERED: CETI10TA PO (09:58)
[2019-05-25] MEDS ORDERED: NEBUKIT5 NEB (10:15)
[2019-05-25] MEDS ORDERED: ALBU83IN NEB (10:15)
[2019-05-25] MEDS ORDERED: [UNRECOGNIZED DRUG - SUPPLY] EXT (10:15)
[2019-05-25] MEDS ORDERED: EASY-106 NEB (10:15)
[2019-05-25] MEDS: MOXIFLOXACIN HCL 400 MG in IV 1 EA IV SCH (10:29)
[2019-05-25] MEDS ORDERED: MOXI1TAB PO (11:41)
--- NOTE | 2019-05-25 21:31 | IPN ---
DATE: 05/24/2019 Patient ambulated outside, but became hypoxic, dropping down to around 84%, returned to about 88% upon returning to the bed. Patient continues to have some nasal congestion and very tight, difficult to expectorate cough. Sputum is fairly scant, slightly improved today. He was able to sleep adequately last night and received is nebulizers every 4 hours. Patient says that when he uses Acapella, his oxygen saturations improve to about 92-91%. Afebrile overnight. No complaints of chills. Still with cough, difficult to expectorate. Temperature 97.5, pulse 63, respiratory rate 20, blood pressure 125/75, 90% on 3 liters nasal cannula. GENERAL: Able to speak in full sentences. No conversational dyspnea. Boggy nasal turbinates. Positive sinus tenderness maxillary sinuses bilaterally. Moist mucous membranes. No stridor. LUNGS: Diminished, but clear to auscultation. HEART: S1, S2. Sinus rhythm. ABDOMEN: Obese. Soft, nontender. EXTREMITIES: No cyanosis or clubbing. White count 10, hemoglobin 15, hematocrit 46, platelet count 148. Previous platelet count 126. Sodium 140, potassium 4, chloride 105, bicarbonate 29, BUN 25, creatinine 0.78, glucose 143. ASSESSMENT AND PLAN: 1. A 69-year-old male with history of chronic obstructive pulmonary disease (COPD) presented with influenza after being exposed to his grandson, currently being treated for acute hypoxic respiratory failure, dropping down to 84% on room air. Currently improving, 2.5-3 liters of oxygen with Acapella device and chest physiotherapy, currently being treated for COPD exacerbation and influenza. On Tamiflu and Solu-Medrol. 2. Acute COPD exacerbation. On Solu-Medrol nebulizer treatments every 4 hours and every hour as needed. Titrate oxygen to 88-92%. CT chest shows no pulmonary embolism (PE), aneurysm or dissection. He has bilateral lower lobe and linear fibrosis in the right middle upper lobe, unchanged from August 2008. We have added antibiotics for inflammatory wheeze. 3. Hypertension. Stable. 4. Obesity. Body mass index (BMI) of 34, complicating his care. 5. Type 2 diabetes. At goal with some steroid-induced hyperglycemia. Metformin has been held secondary to recent contrast study. DISPOSITION: One to two days, depending on patient's persistent hypoxia. If able to saturate 88% and higher on room air, may be able to be discharged. We will try physiotherapy today to see if this will help.
[2019-05-26] MEDS ORDERED: predniSONE 20 MG TAB PO SCH (09:00)
--- NOTE | 2019-05-26 21:50 | DSES ---
DATE OF ADMISSION: 05/23/2019 DATE OF DISCHARGE: 05/25/2019 PRIMARY DISCHARGE DIAGNOSIS: 1. Acute influenza. 2. Acute hypoxic respiratory failure. 3. Acute chronic obstructive pulmonary disease (COPD) exacerbation. 4. Mucous plugging. 5. Rhinitis. 6. Hypertension. 7. Obesity. 8 Type 2 diabetes with steroid induced hyperglycemia. 9. Moraxella catarrhalis in sputum culture. 10. Thrombocytopenia. DISCHARGE MEDICATIONS: - albuterol 2.5 mg every 4 hours - cetirizine 10 mg daily - Mucinex 500 mg twice a day - Tamiflu 75 mg twice a day - benzoin 10 mg taper 10 mg tablets. - ascorbic acid 500 mg daily - aspirin 81 mg daily - atenolol 100 mg daily - atorvastatin 10 mg daily - fluticasone - Salmeterol 2 puffs inhaled twice a day - hydrochlorothiazide 25 mg daily - ibuprofen 400 mg at bedtime (q.h.s.) - losartan 50 mg twice a day - metformin 500 mg twice a day - multivitamin one daily - ipratropium one puff inhaled daily - moxifloxacin 400 mg daily to complete a 7 day course. HOSPITAL COURSE: This is a 69-year-old male who presented to the emergency room with shortness of breath and fever, put an extra blanket on, two tablets of ibuprofen at 3 and 7 a.m., was found to have positive flu. The patient had significant hypoxia, was found to be 84% on room air. Chest x-ray showed no definite infiltrates. White count was normal, 72% neutrophils, BNP was 186. The patient was admitted for acute hypoxic respiratory failure secondary to acute influenza, was found to have faint wheezing and was also treated for chronic obstructive pulmonary disease (COPD) exacerbation. He complained of nasal rhinorrhea, was treated for rhinitis with improvement. The patient required Acapella, as well as chest physiotherapy to loosen up the mucous plugs and was able to be down-graded to room air at 88%. The patient briefly required up to 10 liters of oxygen, able to come up with increased saturation after using Acapella and resting. The patient's white count was normal. Sputum showed Moraxella. catarrhalis. He is continued on Avelox, which was started in the hospital. PHYSICAL EXAMINATION ON DISCHARGE: Temperature 97.4, pulse of 94, respiratory rate 20, blood pressure 125/78, 89 to 90% on room air at the bedside. General: Awake, alert, oriented times three. Nasal flaring. No cyanosis. Able to speak in full sentences without conversational dyspnea. Lungs: Clear to auscultation. No wheezes, rales or rhonchi. Heart: S1, S2, sinus rhythm. Abdomen: Obese, soft, nontender. Nondistended. Extremities: No cyanosis, clubbing or pitting edema. LABORATORY DATA: White count 8.5, hemoglobin 15, hematocrit 49, platelet count 142. Sodium 138, potassium 4, chloride 105, bicarbonate 28, BUN 27, creatinine is 078, glucose of 161. MICROBIOLOGY: Sputum culture: Moraxella catarrhalis, beta lactamase positive. Influenza A H1, 2009. CT chest 05/22/2019: No pulmonary embolism. Bilateral area of linear fibrosis. Bilateral lower lobe discoid atelectasis, no acute disease. Time spent on discharge 30 minutes.
== END 2019-05-25 13:05 | disposition home or self-care (01) | DRG 189 ==
LOC: M ED 13:06 → M ED INP 13:07 → M MS5PR 19:55 → OBSVTOIN 05-23 10:03
PROVIDERS: ADMIT General Practice; ATTEND General Practice
DX: J96.01 Acute respiratory failure with hypoxia (principal); J44.1 Chronic obstructive pulmonary disease with (acute) exacerbation; J10.1 Influenza due to other identified influenza virus with other respiratory manifestations; I10 Essential (primary) hypertension; E78.5 Hyperlipidemia, unspecified; E66.9 Obesity, unspecified; Z68.34 Body mass index [BMI] 34.0-34.9, adult; Z88.2 Allergy status to sulfonamides; Z90.49 Acquired absence of other specified parts of digestive tract; Z79.82 Long term (current) use of aspirin; E11.65 Type 2 diabetes mellitus with hyperglycemia; D69.6 Thrombocytopenia, unspecified; J31.0 Chronic rhinitis; B96.89 Other specified bacterial agents as the cause of diseases classified elsewhere

== ENCOUNTER → 2019-08-18 | Outpatient (REF) | payer MEDICARE, MEDICAID ==
[~2019-08-18] MED LIST: ADVA230A INH; ALBU8.5H INH; ALBU83IN NEB; ASCO500T PO; ASPI81TA26 PO; ATEN100T PO; ATOR1TAB19 PO; BREO1INH3; CARDCAP3 PO; CETI10TA PO; EASY-106 NEB; HYDR25TAB PO; IBUP-1720 PO; LOSA50TA88 PO; METF500T13 PO; MOXI1TAB PO; MUCI600T31 PO; NEBUKIT5 NEB; OSEL75CA PO; PRED10TA2 PO; SPIR1CAP INH; VITA500C19 PO; [UNRECOGNIZED DRUG - SUPPLY] EXT
[2019-08-18 11:40] LABS: BASO # 0.1 10^3/uL (0.0-0.2); EOS # 0.2 10^3/uL (0.0-0.5); EOS % 3.4 % (0.0-3.0); HEMATOCRIT 44.6 % (42.0-52.0); HEMOGLOBIN 14.2 g/dl (13.5-17.5); LYMPH # 1.3 10^3/uL (1.5-5.0); MEAN CORPUSCULAR HEMOGLOBIN 28.5 pg (27.0-33.0); MEAN CORPUSCULAR HGB CONC 31.8 g/dl (32.0-36.5); MEAN CORPUSCULAR VOLUME 89.6 fl (80.0-96.0); MONO # 0.6 10^3/uL (0.0-0.8); MONO % 9.1 % (0.0-5.0); NEUTROPHILS # 4.7 10^3/uL (1.5-8.5); NEUTROPHILS % 67.1 % (36.0-66.0); PLATELET COUNT, AUTOMATED 189 10^3/uL (150-450); RED BLOOD COUNT 4.98 10^6/uL (4.30-6.10)
[2019-08-18 11:58] LABS: ALBUMIN 3.6 GM/DL (3.2-5.2); ALT/SGPT 27 U/L (12-78); BILIRUBIN,TOTAL 0.5 MG/DL (0.2-1.0); BLOOD UREA NITROGEN 20 MG/DL (7-18); CALCIUM LEVEL 9.2 MG/DL (8.8-10.2); CARBON DIOXIDE LEVEL 31 MEQ/L (21-32); CHLORIDE LEVEL 106 MEQ/L (98-107); CHOLESTEROL LEVEL 147 MG/DL (<200); CHOLESTEROL RISK RATIO 2.625 (<5); CREATININE FOR GFR 0.78 MG/DL (0.70-1.30); GLOMERULAR FILTRATION RATE > 60.0 (>49); GLUCOSE, FASTING 115 MG/DL (70-100); HDL CHOLESTEROL 56 MG/DL (>40); LDL CHOLESTEROL 67 MG/DL (<100); NON-HDL-C 91 MG/DL; POTASSIUM SERUM 4.6 MEQ/L (3.5-5.1); SODIUM LEVEL 142 MEQ/L (136-145); TOTAL PROTEIN 6.4 GM/DL (6.4-8.2); TRIGLYCERIDES LEVEL 118 MG/DL (<150)
[2019-08-18 14:32] LABS: HEMOGLOBIN A1c 6.8 %
== END ==
LOC: M SFHCCLAY 08:47
PROVIDERS: ATTEND Physician Assistant
DX: E11.9 Type 2 diabetes mellitus without complications (principal)

== ENCOUNTER → 2020-02-26 | Outpatient (REF) | payer MEDICARE, MEDICAID ==
[2020-02-26 11:59] LABS: BASO # 0.1 10^3/uL (0.0-0.2); BASO % 0.9 % (0.0-1.0); EOS # 0.3 10^3/uL (0.0-0.5); EOS % 4.5 % (0.0-3.0); HEMATOCRIT 46.5 % (42.0-52.0); HEMOGLOBIN 14.6 g/dl (13.5-17.5); LYMPH # 1.5 10^3/uL (1.5-5.0); LYMPH % 21.7 % (24.0-44.0); MEAN CORPUSCULAR HEMOGLOBIN 28.6 pg (27.0-33.0); MEAN CORPUSCULAR HGB CONC 31.4 g/dl (32.0-36.5); MONO # 0.8 10^3/uL (0.0-0.8); MONO % 11.5 % (0.0-5.0); NEUTROPHILS # 4.1 10^3/uL (1.5-8.5); PLATELET COUNT, AUTOMATED 170 10^3/uL (150-450); RED BLOOD COUNT 5.11 10^6/uL (4.30-6.10); WHITE BLOOD COUNT 6.7 10^3/uL (4.0-10.0)
[2020-02-26 12:44] LABS: ALT/SGPT 28 U/L (12-78); BILIRUBIN,TOTAL 0.5 MG/DL (0.2-1.0); BLOOD UREA NITROGEN 20 MG/DL (7-18); CARBON DIOXIDE LEVEL 32 MEQ/L (21-32); CHLORIDE LEVEL 104 MEQ/L (98-107); CHOLESTEROL LEVEL 212 MG/DL (<200); CHOLESTEROL RISK RATIO 2.864 (<5); CREATININE FOR GFR 0.89 MG/DL (0.70-1.30); FREE T4 1.08 NG/DL (0.76-1.46); GLOMERULAR FILTRATION RATE > 60.0 (>49); GLUCOSE, FASTING 117 MG/DL (70-100); HDL CHOLESTEROL 74 MG/DL (>40); LDL CHOLESTEROL 120 MG/DL (<100); NON-HDL-C 138 MG/DL; POTASSIUM SERUM 4.8 MEQ/L (3.5-5.1); SODIUM LEVEL 141 MEQ/L (136-145); TRIGLYCERIDES LEVEL 88 MG/DL (<150)
[2020-02-26 13:21] LABS: HEMOGLOBIN A1c 6.1 %
== END ==
LOC: M SFHCCLAY 08:37
PROVIDERS: ATTEND Physician Assistant
DX: E78.5 Hyperlipidemia, unspecified (principal); E11.9 Type 2 diabetes mellitus without complications; Z12.5 Encounter for screening for malignant neoplasm of prostate
CPT/HCPCS: 80053; 80061; 83036; 84439; 84443; 85025; G0103

== ENCOUNTER 2020-03-19 12:11 | Inpatient (IN) | payer MEDICARE, MEDICAID ==
[~2020-03-19] VITALS: Ht 175.3 cm; Wt 106.0 kg
[2020-03-19 13:23] LABS: BASO % 0.4 % (0.0-1.0); EOS # 0.1 10^3/uL (0.0-0.5); EOS % 1.3 % (0.0-3.0); HEMATOCRIT 45.6 % (42.0-52.0); HEMOGLOBIN 14.2 g/dl (13.5-17.5); LYMPH # 0.8 10^3/uL (1.5-5.0); LYMPH % 16.1 % (24.0-44.0); MEAN CORPUSCULAR HEMOGLOBIN 28.5 pg (27.0-33.0); MEAN CORPUSCULAR HGB CONC 31.1 g/dl (32.0-36.5); MEAN CORPUSCULAR VOLUME 91.6 fl (80.0-96.0); MONO # 0.9 10^3/uL (0.0-0.8); MONO % 19.3 % (0.0-5.0); NEUTROPHILS # 2.9 10^3/uL (1.5-8.5); NEUTROPHILS % 62.5 % (36.0-66.0); PLATELET COUNT, AUTOMATED 109 10^3/uL (150-450); RED BLOOD COUNT 4.98 10^6/uL (4.30-6.10); WHITE BLOOD COUNT 4.7 10^3/uL (4.0-10.0)
--- NOTE | 2020-03-19 13:26 | REP ---
INDICATION: Coronavirus workup COMPARISON: 05/21/2019 TECHNIQUE: Portable AP view of the chest FINDINGS: The mediastinum and cardiac silhouette are stable and within normal limits for portable technique. The lung ross demonstrate chronic appearing changes without acute focal consolidation, effusion, or pneumothorax. Skeletal structures are intact. IMPRESSION: No focal consolidation or effusion. <Electronically signed by Tushar Vazquez > 03/19/20 [id number]
[2020-03-19 13:27] LABS: RSV AMPLIFICATION NEGATIVE (NEGATIVE)
[2020-03-19 13:44] LABS: INR 1.02; PROTHROMBIN TIME 13.6 SECONDS (12.5-14.3)
[2020-03-19 13:45] LABS: PARTIAL THROMBOPLASTIN TIME 35.6 SECONDS (24.2-38.5)
[2020-03-19 13:47] LABS: D-DIMER QUANT 552.01 ng/ml (<500)
[2020-03-19 13:50] LABS: ALBUMIN 3.5 GM/DL (3.2-5.2); ALT/SGPT 27 U/L (12-78); BILIRUBIN,TOTAL 0.4 MG/DL (0.2-1.0); BLOOD UREA NITROGEN 21 MG/DL (7-18); C REACTIVE PROTEIN QUANTITATIV 2.72 MG/DL (0.00-0.30); CALCIUM LEVEL 8.3 MG/DL (8.8-10.2); CARBON DIOXIDE LEVEL 28 MEQ/L (21-32); CHLORIDE LEVEL 103 MEQ/L (98-107); CK-MB VALUE MASS < 1.0 NG/ML (<3.6); CPK CREATINE PHOSPHOKINASE 68 U/L (39-308); CREATININE FOR GFR 0.88 MG/DL (0.70-1.30); FERRITIN 255 NG/ML (26-388); GLOMERULAR FILTRATION RATE > 60.0 (>49); GLUCOSE, FASTING 98 MG/DL (70-100); LDH LACTATE DEHYDROGENASE 165 U/L (87-241); MAGNESIUM LEVEL 2.1 MG/DL (1.8-2.4); MB/CK RELATIVE INDEX 1.47 (< OR =4); POTASSIUM SERUM 4.1 MEQ/L (3.5-5.1); SODIUM LEVEL 136 MEQ/L (136-145); TOTAL PROTEIN 6.4 GM/DL (6.4-8.2); TROPONIN I < 0.02 NG/ML (< 0.10)
[2020-03-19] MEDS ORDERED: ALB2.5NEB INH (15:11)
[2020-03-19] MEDS ORDERED: BREO1INH3 INH (15:11)
[2020-03-19] MEDS ORDERED: IBUPROFEN 400 MG TAB PO ONE (15:15)
[2020-03-19] MEDS ORDERED: ALBUTEROL 90 MCG/ACT 8GM HFA INHALER INH PRN (16:00)
[2020-03-19] MEDS ORDERED: GLUCOSE 4GM CHEW TABLET PO PRN (16:00)
[2020-03-19] MEDS ORDERED: GLUCAGON INJ 1MG VIAL SC PRN (16:00)
[2020-03-19] MEDS ORDERED: DEXTROSE 50% 50 ML SYRINGE IV PRN (16:00)
--- NOTE | 2020-03-19 16:18 | REP ---
INDICATION: COVID COMPARISON: 05/22/2019 TECHNIQUE: Axial noncontrast images from the thoracic inlet to the upper abdomen with coronal and sagittal reformations. This CT examination was performed using the following dose reduction techniques: Automated exposure control, adjustment of mA and/or kv according to the patient's size, and use of iterative reconstruction technique. FINDINGS: Lung ross demonstrate chronic advanced emphysematous changes with scattered areas of linear scarring primarily noted at the basilar right upper lobe, lingula, and posterior basilar lower lobes. Trace dependent atelectasis cannot be excluded. No evidence for acute airspace disease/consolidation, effusion or pneumothorax. Tracheobronchial tree is patent. Nonspecific mediastinal lymph nodes up to approximately 10 mm short axis diameter are unchanged. Further evaluation of the mediastinum demonstrates stable atherosclerotic changes to the thoracic aorta and coronary arteries without aortic aneurysm. No cardiomegaly or significant pericardial effusion. Thyroid gland is grossly normal by CT. Limited upper abdomen demonstrates normal visualized portions of the bilateral adrenal glands. IMPRESSION: 1. Advanced COPD/emphysematous changes with chronic stable areas of scarring. 2. Minimal posterior basilar dependent changes. No significant airspace disease/consolidation or effusion. <Electronically signed by Tushar Vazquez > 03/19/20 [id number]
--- NOTE | 2020-03-19 16:30 | HPE ---
HISTORY AND PHYSICAL DATE OF ADMISSION: 03/19/2020 ADMITTING DIAGNOSIS: COVID infection with shortness of breath. HISTORY OF PRESENT ILLNESS: John Choudhury is a 69-year-old patient of Bonny Isbell at the [facility] in [place]. He has been having about four days of congestion, cough, and dyspnea on exertion. He came to the emergency room diagnosed with COVID. His O2 saturation was 88% on room air at rest; so he is being admitted for further treatment. PAST MEDICAL HISTORY: 1. He has a history of COPD and follows with [facility]. He has an appointment there actually this coming week. 2. Hypertensive heart disease. 3. Hyperlipidemia. 4. Type 2 diabetes, under very good control. His last hemoglobin A1c was 6.1%. 5. Suspected obstructive sleep apnea (CIELO) for which he has not consented to a workup. 6. Obesity with a BMI of 33. PAST SURGICAL HISTORY: 1. Tonsillectomy. 2. Right carpal tunnel repair. FAMILY HISTORY: Father is alive with history of heart disease. Mother is alive with history of arthritis and congestive heart failure (CHF). SOCIAL HISTORY: Quit smoking over 10 years ago. Three or four alcoholic drinks per day. 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 . REVIEW OF SYSTEMS: Taste and smell sensation are intact. No chills, sputum production, or fever. He does feel weak and tired. MEDICATIONS: - hydrochlorothiazide 25 mg - Albuterol nebulizer q. 8 hours - Spiriva one inhalation daily - Advair 115/21 two puffs b.i.d. - metformin 500 mg b.i.d. - atorvastatin 10 mg daily - aspirin 81 mg daily - losartan 50 mg daily - Atenolol 100 mg daily - vitamin C ALLERGIES: SULFA caused a rash. PHYSICAL EXAMINATION: VITAL SIGNS: Per ER flow sheet. GENERAL APPEARANCE: Alert and conversant, in no distress. No dyspnea at all. HEENT: Unremarkable with mask remaining on. NECK: No masses. LUNGS: Clear. HEART: Regular rhythm. ABDOMEN: Soft and nontender with no masses. EXTREMITIES: No clubbing, cyanosis, or edema. Normal strength in the arms and legs. SKIN: No rash. LABORATORY DATA: White count 4.7, hemoglobin 14.2, platelets 109,000 (chronically mildly thrombocytopenic). Procalcitonin level is undetectable. Sodium 136, potassium 4.1, BUN 21, creatinine 0.8, glucose 98. Lactic acid is normal. Troponin is not detectable. C-reactive protein is 2.7. Fibrinogen 552. D-dimer 552. COVID screen positive. IMAGING: Chest x-ray is an AP film with no active disease. IMPRESSION AND PLAN: 1. COVID infection with some mild hypoxemia. He will be admitted to the COVID floor. I do not think he needs the intensive care unit (ICU). He uses nocturnal oxygen at home. He does follow with [facility]. I have a call in to the conveyor system operator safety attendant to discuss the case. Will prescribe dexamethasone 6 mg IV daily. Consideration for remdesivir based upon clinical response and clinical course over the next few days. He is about four days into his symptoms. 2. Hypertensive heart disease. Continue his antihypertensive therapy. 3. Chronic obstructive pulmonary disease (COPD). Continue his bronchodilator therapy. 4. Diabetes. Hold his metformin. Sliding scale insulin with fingerstick blood sugar ordered with coverage as needed because of the steroid therapy. 5. Deep vein thrombosis (DVT) prophylaxis based on COVID protocol has been ordered.
[2020-03-19 17:14] LABS: BASO % 0.6 % (0.0-1.0); EOS # 0.1 10^3/uL (0.0-0.5); EOS % 0.9 % (0.0-3.0); HEMATOCRIT 46.7 % (42.0-52.0); HEMOGLOBIN 14.4 g/dl (13.5-17.5); LYMPH # 0.8 10^3/uL (1.5-5.0); LYMPH % 15.8 % (24.0-44.0); MEAN CORPUSCULAR HEMOGLOBIN 28.3 pg (27.0-33.0); MEAN CORPUSCULAR HGB CONC 30.8 g/dl (32.0-36.5); MEAN CORPUSCULAR VOLUME 91.7 fl (80.0-96.0); MONO # 0.9 10^3/uL (0.0-0.8); MONO % 17.3 % (0.0-5.0); NEUTROPHILS # 3.5 10^3/uL (1.5-8.5); PLATELET COUNT, AUTOMATED 110 10^3/uL (150-450); RED BLOOD COUNT 5.09 10^6/uL (4.30-6.10); WHITE BLOOD COUNT 5.3 10^3/uL (4.0-10.0)
[2020-03-19] MEDS: HumaLOG INSULIN (NovoLOG) PER UNIT SC SCH ×2 (17:29→20:44)
[2020-03-19] MEDS ORDERED: SODIUM CHLORIDE 0.9% INJ 10 ML SYR IV ONE (17:30)
[2020-03-19 17:31] LABS: INR 0.97; PROTHROMBIN TIME 13.1 SECONDS (12.5-14.3)
[2020-03-19 17:32] LABS: PARTIAL THROMBOPLASTIN TIME 35.5 SECONDS (24.2-38.5)
[2020-03-19 17:34] LABS: D-DIMER QUANT 543.9 ng/ml (<500)
[2020-03-19 19:22] LABS: ALBUMIN 3.6 GM/DL (3.2-5.2); ALT/SGPT 27 U/L (12-78); BILIRUBIN,DIRECT 0.1 MG/DL (0.0-0.2); BILIRUBIN,TOTAL 0.4 MG/DL (0.2-1.0); BLOOD UREA NITROGEN 21 MG/DL (7-18); C REACTIVE PROTEIN QUANTITATIV 3.38 MG/DL (0.00-0.30); CALCIUM LEVEL 8.7 MG/DL (8.8-10.2); CARBON DIOXIDE LEVEL 31 MEQ/L (21-32); CHLORIDE LEVEL 100 MEQ/L (98-107); CK-MB VALUE MASS < 1.0 NG/ML (<3.6); CPK CREATINE PHOSPHOKINASE 69 U/L (39-308); CREATININE FOR GFR 0.93 MG/DL (0.70-1.30); FERRITIN 298 NG/ML (26-388); GLOMERULAR FILTRATION RATE > 60.0 (>49); GLUCOSE, FASTING 96 MG/DL (70-100); LDH LACTATE DEHYDROGENASE 183 U/L (87-241); MB/CK RELATIVE INDEX 1.45 (< OR =4); NT-PRO BNP 32 PG/ML (<125); POTASSIUM SERUM 4.5 MEQ/L (3.5-5.1); SODIUM LEVEL 136 MEQ/L (136-145); TOTAL PROTEIN 6.9 GM/DL (6.4-8.2); TRIGLYCERIDES LEVEL 101 MG/DL (<150); TROPONIN I < 0.02 NG/ML (< 0.10)
[2020-03-19] MEDS ORDERED: ACETAMINOPHEN TAB 650MG DOSE (2X325MG) PO ONE (20:00)
[2020-03-19] MEDS ORDERED: FIORICET TAB PO ONE (20:00)
[2020-03-19] MEDS: LOSARTAN 50MG TABLET PO SCH (20:36)
[2020-03-19] MEDS: ENOXAPARIN 60MG/0.6ML SYRINGE (J1650 PER 10MG) SC SCH (20:37)
[2020-03-19 22:00] VITALS: BP 116/72
[2020-03-20 06:00] VITALS: BP 104/55
[2020-03-20 07:11] LABS: BASO % 0.4 % (0.0-1.0); EOS % 0.4 % (0.0-3.0); HEMATOCRIT 41.2 % (42.0-52.0); HEMOGLOBIN 13.1 g/dl (13.5-17.5); LYMPH # 0.7 10^3/uL (1.5-5.0); LYMPH % 16.2 % (24.0-44.0); MEAN CORPUSCULAR HEMOGLOBIN 28.6 pg (27.0-33.0); MEAN CORPUSCULAR HGB CONC 31.8 g/dl (32.0-36.5); MONO # 0.7 10^3/uL (0.0-0.8); MONO % 16.2 % (0.0-5.0); NEUTROPHILS % 66.6 % (36.0-66.0); PLATELET COUNT, AUTOMATED 113 10^3/uL (150-450); RED BLOOD COUNT 4.58 10^6/uL (4.30-6.10); WHITE BLOOD COUNT 4.6 10^3/uL (4.0-10.0)
[2020-03-20] MEDS: HumaLOG INSULIN (NovoLOG) PER UNIT SC SCH ×4 (07:30→20:25)
[2020-03-20 07:39] LABS: INR 1.09; PROTHROMBIN TIME 14.3 SECONDS (12.5-14.3)
[2020-03-20 07:40] LABS: PARTIAL THROMBOPLASTIN TIME 39.4 SECONDS (24.2-38.5)
[2020-03-20 07:42] LABS: ALBUMIN 3.2 GM/DL (3.2-5.2); ALT/SGPT 24 U/L (12-78); BILIRUBIN,DIRECT 0.1 MG/DL (0.0-0.2); BILIRUBIN,TOTAL 0.4 MG/DL (0.2-1.0); BLOOD UREA NITROGEN 25 MG/DL (7-18); C REACTIVE PROTEIN QUANTITATIV 4.27 MG/DL (0.00-0.30); CARBON DIOXIDE LEVEL 28 MEQ/L (21-32); CHLORIDE LEVEL 99 MEQ/L (98-107); CREATININE FOR GFR 0.84 MG/DL (0.70-1.30); D-DIMER QUANT 535.77 ng/ml (<500); FERRITIN 356 NG/ML (26-388); GLOMERULAR FILTRATION RATE > 60.0 (>49); GLUCOSE, FASTING 109 MG/DL (70-100); LDH LACTATE DEHYDROGENASE 166 U/L (87-241); MAGNESIUM LEVEL 1.9 MG/DL (1.8-2.4); NT-PRO BNP 41 PG/ML (<125); POTASSIUM SERUM 4.1 MEQ/L (3.5-5.1); SODIUM LEVEL 134 MEQ/L (136-145); TROPONIN I < 0.02 NG/ML (< 0.10)
[2020-03-20 08:00] VITALS: O2SAT 90
[2020-03-20] MEDS ORDERED: dexameTHASONE 4 MG/ML 1ML VIAL (J1100 PER 1MG) IV SCH (09:00)
[2020-03-20] MEDS: TIOTROPIUM INHALER/CAPSULE (SPIRIVA) INH SCH (09:00)
--- NOTE | 2020-03-20 09:46 | IPN ---
PROGRESS NOTE DATE: 03/20/2020 SUBJECTIVE: John is seen on [address] on the COVID Unit, admitted with shortness of breath, positive COVID test. He had required an increase in amounts of oxygen overnight, at one point up to 6 liters per nursing staff, although currently on 4 liters, maintaining an O2 saturation of 90% on 4 liters. He has a cough. He does feel mildly short of breath. He does not feel significantly worse than yesterday. PHYSICAL EXAMINATION: VITAL SIGNS: Blood pressure 105/55, pulse 88, respiratory rate 23, 98% O2 saturation. GENERAL: He is alert, conversant, in no distress. HEENT: Unremarkable. LUNGS: Scattered rhonchi and wheezes. HEART: Regular rhythm, no murmur. ABDOMEN: Obese, nontender. No masses. EXTREMITIES: Trace peripheral edema. LABORATORY DATA: White count 4.6, hemoglobin 13.1, platelets 113,000, sodium 134, potassium 4.1, BUN 25, creatinine 0.8. C-reactive protein is down from 3.3 to 4.2. Procalcitonin is not detectable. Fibrinogen levels and D-Dimer levels are stable. IMPRESSION: 1. COVD infection with hypoxemia. I have consulted Pulmonary. The case was discussed with Dr. Owen. I started Remdesivir. Continue his IV Dexamethasone. 2. Hypertensive heart disease. Blood pressure is well-controlled. 3. COPD, he follows with [facility] for this. Continue his bronchodilator. 4. Diabetes, hold his Metformin. Sliding scale insulin for coverage. I anticipate he will have some hyperglycemia from the steroids. 5. DVT prophylaxis based on COVID protocol has been ordered.
[2020-03-20] MEDS: ASPIRIN 81 MG ENTERIC TAB PO SCH (10:17)
[2020-03-20] MEDS: LOSARTAN 50MG TABLET PO SCH ×2 (10:19→21:00)
[2020-03-20] MEDS: atenoloL 50 MG TAB PO SCH (10:22)
[2020-03-20] MEDS: ENOXAPARIN 60MG/0.6ML SYRINGE (J1650 PER 10MG) SC SCH ×2 (10:25→20:43)
[2020-03-20 12:00] VITALS: BP 105/57; O2SAT 92
[2020-03-20] MEDS: ALBUTEROL 90 MCG/ACT 8GM HFA INHALER INH SCH ×4 (12:19→22:54)
[2020-03-20] MEDS ORDERED: SODIUM CHLORIDE 0.9% INJ 10 ML SYR IV ONE (13:00)
--- NOTE | 2020-03-20 13:38 | CR ---
CONSULTATION DATE: 03/20/2020 REASON FOR CONSULTATION: Hypoxia. HISTORY OF PRESENT ILLNESS: Mr. Choudhury is a 69-year-old male with a past medical history of COPD with chronic hypoxemic respiratory failure, diabetes, hypertension, hyperlipidemia, suspected CIELO, and previous nicotine dependence who presented with complaints of shortness of breath and cough. The patient reported that he had a family member with daughter and son-in-law, as well as grandchildren, who had tested positive for COVID-19 recently. The patient's family had symptoms at least back at [place] and even prior to that, but had not gotten tested until recently. The patient himself starting noticing a few days prior to admission symptoms of worsening shortness of breath, as well as cough occasionally productive of white or clear sputum. The patient was also complaining of headaches and some fever symptoms and was taking ibuprofen routinely at home, as well as using his nebulized bronchodilator three or four times a day. He is also on Breo, as well as Spiriva for maintenance inhalers, which he has been compliant with. The patient denied any chest pain and no significant wheezing that he noticed. He also denied any increased lower extremity edema or orthopnea. The patient is on nasal cannula oxygen supplementation 3 l/min at night. He had previously been recommended by his field supervisor to get sleep testing for suspected sleep apnea, which he refused. The patient also has a previous documentation of hypoxemia on room air and particularly with exertion. The patient had been seen in our pulmonary clinic in September and was 86% on room air at that time. His previous visit in June of this year, he was 82% on room air at that time. The patient had required the addition of 3 liters nasal cannula oxygen at rest and then with increase of 4 l/min with exertion to maintain his O2 sat above 88%. The patient has had previous discussion documented by his field supervisor upon the need of supplemental oxygen given his chronic hypoxemia and the risk of continued chronic hypoxemia. 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 He does also have a home pulse oximeter and he does admit when he checks his oxygen saturations in the morning, he will usually be in the high 80s or very low 90s. The patient's last hospitalization was in May where he was hospitalized for influenza with COPD exacerbation. He denies any frequent exacerbation history of hospitalization prior to this recent one this year. PAST MEDICAL AND SURGICAL HISTORY: 1. COPD with chronic hypoxemia respiratory failure. 2. Hypertension. 3. Hyperlipidemia. 4. Diabetes. 5. Suspected CIELO refusing evaluation. 6. Obesity. 7. Tonsillectomy. 8. Right carpal tunnel repair. 9. Previous nicotine dependence. HOME MEDICATIONS: - hydrochlorothiazide - Albuterol nebulized as needed - Spiriva - Breo - metformin - atorvastatin - aspirin - losartan - Atenolol - vitamin C ALLERGIES: SULFA. FAMILY HISTORY: Father with history of heart disease. Mother with a history of arthritis and CHF. SOCIAL HISTORY: The patient is a former smoker, was 1 to 1.5 packs a day for 40 years, and quit in 2009. The patient drinks three to four alcoholic drinks a day. 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 OBJECTIVE: VITAL SIGNS: T-max 101.3, T current 100.1, pulse 89, respirations 23, blood pressure 104/55, O2 saturation 90% on 4 liters nasal cannula. GENERAL: The patient is sitting in the bed awake and alert. He does not appear to be in any respiratory distress. He is speaking in complete sentences and is not using any accessory muscles for respiration. HEENT: Normocephalic, atraumatic. Pupils reactive to light. NECK: Supple. Trachea is midline. No palpable adenopathy. CARDIAC: Regular rate and rhythm. Normal S1, S2. Unable to clearly appreciate any murmur. PULMONARY: Significantly diminished breath sounds bilaterally with prolonged expiration. Unable to appreciate any significant wheezing or rhonchi. ABDOMEN: Obese, soft, nontender, and nondistended. EXTREMITIES: There is no lower extremity edema bilaterally. LABORATORY DATA: WBC 4.6, hemoglobin 13.1, platelets 113,000. Chemistries: Sodium 134, potassium 4.1, chloride 99, bicarb 28, BUN 25, creatinine 0.84, glucose 109. CRP 4.27. Albumin 2.2. Procalcitonin 0.05. BNP is 41. D-dimer is 535.77. IMAGING: CT chest shows emphysematous changes bilaterally, as well as some mild fibrosis in the periphery. There is linear atelectasis in the left upper lobe and lingula, as well as the right middle lobe and more fibroatelectatic changes in the bibasilar regions bilaterally. There is no focal opacity or infiltrate. ASSESSMENT AND PLAN: Mr. Choudhury is a 69-year-old male with a past medical history of chronic obstructive pulmonary disease (COPD) with chronic hypoxemia respiratory failure, hypertension, hyperlipidemia, diabetes, and prior nicotine dependence who presented with worsening shortness of breath and dyspnea. The patient was found to be COVID-19 positive with negative influenza and respiratory syncytial virus (RSV). The patient reports worsening shortness of breath and dyspnea for the past few days, as well as some fevers. He was taking ibuprofen at home with improvement in his fevers and his symptoms. He was also using his nebulized bronchodilators three to four times a day in addition to his maintenance inhalers. Pulmonary was called given his worsening hypoxia. He had been on up to 6 l/min overnight, although he was able to be weaned down again to 4 l/min nasal cannula today. Acute on chronic hypoxemic respiratory failure in the setting of chronic COPD exacerbation secondary to COVID-19. - The patient appears to have a history of chronic hypoxemia respiratory failure at baseline. He has been evaluated by his field supervisor in the past for his hypoxia, and he does use nasal cannula oxygen at home with the suspicion of possible sleep apnea for which he has refused to be evaluated for. He also has daytime hypoxia and on his previous two visits this year to [facility], his O2 sats were in the 80s sometimes low 80s. He required 3 l/min at rest previously and up to 4 l/min with exertion. 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 The patient's current hypoxia, therefore, appears to only be slightly worse than his baseline. His CT did not show any focal opacities or infiltrates and suspect that his dyspnea and hypoxia at this time is likely in the setting of COPD exacerbation. He does have very diminished breath sounds on exam currently. - Will discontinue dexamethasone and change to Solu-Medrol as he will likely need a higher dose of steroids for his acute COPD exacerbation. He states that in the past when he has had viral illnesses, he does require admission and a long course of steroids. Previously he states he was on prednisone for a few weeks after his last hospitalization secondary to influenza. - The patient was started on remdesivir, which we can continue for a maximum of five days. - Will continue nasal cannula oxygen supplementation and wean down as tolerated to maintain his O2 saturation of 88% to 92%. - Can continue with maintenance inhalers with triple inhaler therapy. He is on Breo and Spiriva at home, can supplement with Advair and Spiriva, and continue using Albuterol rescue inhaler q. 4 hours. - If the patient is improving clinically, suspect he will likely be able to be discharged home in the next few days. He does as stated have the capability for portable oxygen tanks at home, as well as a concentrator. Deep vein thrombosis (DVT) prophylaxis. Continue with weight-based prophylaxis with Lovenox. Code status: FULL CODE. Please do not hesitate to call for any further questions or concerns. The patient can follow-up with pulmonary on discharge. He follows up with АЛЕКСАНДР Arambula in the clinic, and he can follow-up with her in one to two weeks after discharge. KASANDRA
[2020-03-20 16:00] VITALS: O2SAT 91
[2020-03-20] MEDS ORDERED: SODIUM CHLORIDE 0.9% INJ 10 ML SYR IV SCH (16:30)
--- NOTE | 2020-03-20 18:55 | ECGEPIP ---
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
[2020-03-20 20:00] VITALS: BP 105/59; O2SAT 90; O2SAT 91
[2020-03-20] MEDS: methylPREDNISolone 40MG 1ML VIAL IV SCH (20:42)
[2020-03-21] VITALS (8 sets, daily range): BP systolic 112–151; BP diastolic 53–70; O2SAT 87–94
[2020-03-21] MEDS: ALBUTEROL 90 MCG/ACT 8GM HFA INHALER INH SCH ×5 (02:31→19:04)
[2020-03-21 06:23] LABS: BASO % 0.4 % (0.0-1.0); HEMATOCRIT 44.4 % (42.0-52.0); LYMPH # 0.5 10^3/uL (1.5-5.0); MEAN CORPUSCULAR HEMOGLOBIN 28.2 pg (27.0-33.0); MEAN CORPUSCULAR HGB CONC 31.5 g/dl (32.0-36.5); MEAN CORPUSCULAR VOLUME 89.5 fl (80.0-96.0); MONO # 0.3 10^3/uL (0.0-0.8); MONO % 12.3 % (0.0-5.0); NEUTROPHILS # 1.9 10^3/uL (1.5-8.5); NEUTROPHILS % 69.9 % (36.0-66.0); PLATELET COUNT, AUTOMATED 119 10^3/uL (150-450); RED BLOOD COUNT 4.96 10^6/uL (4.30-6.10); WHITE BLOOD COUNT 2.8 10^3/uL (4.0-10.0)
[2020-03-21 06:39] LABS: INR 1.07; PROTHROMBIN TIME 14.1 SECONDS (12.5-14.3)
[2020-03-21 06:40] LABS: PARTIAL THROMBOPLASTIN TIME 41.3 SECONDS (24.2-38.5)
[2020-03-21 07:00] LABS: ALBUMIN 3.2 GM/DL (3.2-5.2); ALT/SGPT 26 U/L (12-78); BILIRUBIN,DIRECT 0.1 MG/DL (0.0-0.2); BILIRUBIN,TOTAL 0.3 MG/DL (0.2-1.0); BLOOD UREA NITROGEN 24 MG/DL (7-18); CALCIUM LEVEL 8.5 MG/DL (8.8-10.2); CARBON DIOXIDE LEVEL 28 MEQ/L (21-32); CHLORIDE LEVEL 104 MEQ/L (98-107); CREATININE FOR GFR 0.79 MG/DL (0.70-1.30); FERRITIN 475 NG/ML (26-388); GLOMERULAR FILTRATION RATE > 60.0 (>49); GLUCOSE, FASTING 158 MG/DL (70-100); MAGNESIUM LEVEL 2.2 MG/DL (1.8-2.4); NT-PRO BNP 55 PG/ML (<125); POTASSIUM SERUM 4.6 MEQ/L (3.5-5.1); SODIUM LEVEL 139 MEQ/L (136-145); TOTAL PROTEIN 6.7 GM/DL (6.4-8.2); TROPONIN I < 0.02 NG/ML (< 0.10)
[2020-03-21] MEDS: methylPREDNISolone 40MG 1ML VIAL IV SCH ×2 (08:46→20:38)
[2020-03-21] MEDS: ENOXAPARIN 60MG/0.6ML SYRINGE (J1650 PER 10MG) SC SCH ×2 (08:47→20:39)
[2020-03-21] MEDS: ASPIRIN 81 MG ENTERIC TAB PO SCH (08:47)
[2020-03-21] MEDS: HumaLOG INSULIN (NovoLOG) PER UNIT SC SCH ×4 (08:48→20:30)
[2020-03-21] MEDS: LOSARTAN 50MG TABLET PO SCH ×2 (08:48→20:41)
[2020-03-21] MEDS: atenoloL 50 MG TAB PO SCH (08:49)
[2020-03-21] MEDS: TIOTROPIUM INHALER/CAPSULE (SPIRIVA) INH SCH (09:25)
[2020-03-21] MEDS: SODIUM CHLORIDE 0.9% INJ 10 ML SYR IV SCH (12:24)
--- NOTE | 2020-03-21 13:44 | IPN ---
PROGRESS NOTE DATE: 03/21/2020 SUBJECTIVE: John feels well. I appreciate the pulmonary consultation I received yesterday. The patient seems to be mostly near his baseline and apparently had higher oxygen needs as an outpatient than what we understood upon admission. Appreciate Dr. Owen sorting that out. He does have a positive blood culture ___ cocci in clusters on one of his two admission blood cultures, the other is negative. No fevers or chills, sweats. Overall he feels well. PHYSICAL EXAMINATION: VITAL SIGNS: Afebrile, blood pressure 110/63, 89% O2 saturation on 3 liters. GENERAL: He is alert, conversant, no distress. LUNGS: Entirely clear. HEART: Regular rhythm, no murmur. ABDOMEN: Soft and nontender. EXTREMITIES: No edema. No arthritis or swelling of his joints. LABS: White count 2.8, platelets stable at 119. Sodium 139, potassium 4.6, BUN 24, creatinine 0.7, glucose 158. Fibrinogen level is stable. IMPRESSION: 1. Positive blood culture, suspect contaminant. Repeat blood cultures have been ordered. I do not think he can be discharged until we identify whether this is a contaminant versus true bacteremia particularly while on steroid therapy. 2. COVID infection with hypoxemia. Appreciate Pulmonary's input. Continue remdesivir. His IV dexamethasone was changed to Solu-Medrol by Pulmonary. 3. Hypertension. Blood pressure is well-controlled. 4. Diabetes. He is on sliding scale Insulin. We will restart his oral medications at discharge. 5. Potential discharge tomorrow although more likely it will be 03/23/2020 before we have the blood culture reports all back.
[2020-03-22] VITALS: O2SAT 90
[2020-03-22] MEDS: ALBUTEROL 90 MCG/ACT 8GM HFA INHALER INH SCH ×4 (00:11→11:47)
[2020-03-22 04:36] VITALS: BP 119/57
[2020-03-22 04:37] VITALS: O2SAT 89
[2020-03-22] MEDS: TIOTROPIUM INHALER/CAPSULE (SPIRIVA) INH SCH (07:53)
[2020-03-22 07:58] LABS: BASO % 0.2 % (0.0-1.0); HEMATOCRIT 42.6 % (42.0-52.0); HEMOGLOBIN 13.9 g/dl (13.5-17.5); LYMPH # 0.8 10^3/uL (1.5-5.0); LYMPH % 11.6 % (24.0-44.0); MEAN CORPUSCULAR HGB CONC 32.6 g/dl (32.0-36.5); MEAN CORPUSCULAR VOLUME 88.8 fl (80.0-96.0); MONO # 0.7 10^3/uL (0.0-0.8); MONO % 9.9 % (0.0-5.0); NEUTROPHILS # 5.2 10^3/uL (1.5-8.5); NEUTROPHILS % 77.8 % (36.0-66.0); PLATELET COUNT, AUTOMATED 121 10^3/uL (150-450); WHITE BLOOD COUNT 6.7 10^3/uL (4.0-10.0)
[2020-03-22 08:00] VITALS: BP 119/63
[2020-03-22 08:11] LABS: INR 1.09; PROTHROMBIN TIME 14.3 SECONDS (12.5-14.3)
[2020-03-22 08:12] LABS: PARTIAL THROMBOPLASTIN TIME 35.9 SECONDS (24.2-38.5)
[2020-03-22 08:21] LABS: ALT/SGPT 25 U/L (12-78); BILIRUBIN,DIRECT < 0.1 MG/DL (0.0-0.2); BILIRUBIN,TOTAL 0.3 MG/DL (0.2-1.0); BLOOD UREA NITROGEN 26 MG/DL (7-18); CALCIUM LEVEL 8.1 MG/DL (8.8-10.2); CARBON DIOXIDE LEVEL 27 MEQ/L (21-32); CHLORIDE LEVEL 107 MEQ/L (98-107); CREATININE FOR GFR 0.77 MG/DL (0.70-1.30); FERRITIN 430 NG/ML (26-388); GLOMERULAR FILTRATION RATE > 60.0 (>49); GLUCOSE, FASTING 135 MG/DL (70-100); MAGNESIUM LEVEL 2.1 MG/DL (1.8-2.4); NT-PRO BNP 56 PG/ML (<125); POTASSIUM SERUM 4.4 MEQ/L (3.5-5.1); SODIUM LEVEL 138 MEQ/L (136-145); TOTAL PROTEIN 6.5 GM/DL (6.4-8.2)
[2020-03-22 08:45] VITALS: BP 119/57
[2020-03-22] MEDS: atenoloL 50 MG TAB PO SCH (08:45)
[2020-03-22] MEDS: LOSARTAN 50MG TABLET PO SCH (08:45)
[2020-03-22] MEDS: ASPIRIN 81 MG ENTERIC TAB PO SCH (08:45)
[2020-03-22] MEDS: HumaLOG INSULIN (NovoLOG) PER UNIT SC SCH ×2 (08:46→12:09)
[2020-03-22] MEDS: methylPREDNISolone 40MG 1ML VIAL IV SCH (08:46)
[2020-03-22] MEDS: ENOXAPARIN 60MG/0.6ML SYRINGE (J1650 PER 10MG) SC SCH (08:46)
[2020-03-22] MEDS ORDERED: AUGM875T28 PO (10:56)
[2020-03-22] MEDS ORDERED: DEXA2TA PO (10:57)
[2020-03-22 11:10] LABS: HIV 1&2 SCREEN CENTAUR NEGATIVE (NEGATIVE)
--- NOTE | 2020-03-22 11:50 | DS.PDOC ---
Discharge Summary General Date of Admission Mar 19, 2020 at 15:20 Date of Discharge 03/22/2020 Attending Physician: MIGUEL KEARNEY MD Specialist/Consultants Involve: RAMYA NEWTON MD Discharge Summary ADMITTING DIAGNOSES / DISCHARGE DIAGNOSES: COPD with chronic hypoxemia respiratory failure. Hypertension. Hyperlipidemia. NIDDM Suspected CIELO refusing evaluation. Obesity. Tonsillectomy. Right carpal tunnel repair. Previous nicotine dependence. COMPLICATIONS/CHIEF COMPLAINT: shortness of breath and cough HISTORY OF PRESENT ILLNESS: Mr. Choudhury is a 69-year-old male with a PMHx significant for COPD with chronic hypoxemic respiratory failure, diabetes, hypertension, hyperlipidemia, suspected CIELO, and previous nicotine dependence, who presented with complaints of shortness of breath and cough. The patient reported that he had a family member with daughter and son-in-law, as well as grandchildren, who had tested positive for COVID-19 recently. The patient's family had symptoms at least back at [place] and even prior to that, but had not gotten tested until recently. His symptoms started a few days prior to this admission, which mostly manifested as progressively worsening of sob and cough with occasional cough productive of white/clear sputum. He took nebulized bronchodilators 3-4x a day and has breo- ellipta and spiriva for maintenance. He also noted some headaches and subjective fever and took motrin. He denied any chest pain, or worsening of wheezing from his baseline or orthopnea or lower extr edema. He uses 3L O2 at home and increases to 4L with exertion and usu sats in the high 80s. His CT did not show any focal opacities or infiltrates. 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 The patient also has a previous documentation of hypoxemia on room air and particularly with exertion. The patient had been seen in our pulmonary clinic in September and was 86% on room air at that time. His previous visit in June of this year, he was 82% on room air at that time. The patient had required the addition of 3L nasal cannula O2 at rest and then with increase of 4L/min with exertion to maintain his O2 sat above 88%. HOSPITAL COURSE: The patient appears to have a history of chronic hypoxemia respiratory failure at baseline. He presents with acute on chronic hypoxemic respiratory failure in the setting of acute on chronic COPD exacerbation secondary to COVID-19 infection. His hypoxia is nearly at baseline during hospitalization. The admitting physician did start him on remdesivir and dexamethasone. His CT did not show any focal opacities or infiltrates and it's suspected that his dyspnea and hypoxia at the time is likely in the setting of an acute COPD exacerbation. He did have significant diminished breath sounds on exam and his dexamethasone was switched to solumedrol. On discharge, his lungs sounds clear with some prolonged expiration which is expected given his chronic COPD and hypoxemia. He's instructed to take Augmentin and dexamethasone for 4 more days post discharge and follow up with pulmonology (АЛЕКСАНДР Arambula) within 2 weeks and follow up with PCP within 3-5 days of discharge (as he may need longer dose of steroids) depending on how he does after her finishes his course of steroids. He's instructed to also quarantine for 10 days from onset of his symptoms. If his condition presents again and/or worsens, he's instructed to report back to the ER. DVT ppx- weight-based prophylaxis with Lovenox. Code status: FULL IMAGING: CT chest: Advanced COPD/emphysematous changes with chronic stable areas of scarring. Minimal posterior basilar dependent changes. No significant airspace disease/consolidation or effusion CXR: No focal consolidation or effusion DISCHARGE MEDICATIONS: Please see below. ALLERGIES: Please see below. PHYSICAL EXAM AT DISCHARGE VITAL SIGNS: See below. Satting at baseline 89% on 4L NC with exertion GENERAL: AAOx3. NAD, well hydrated and nourished. No signs of respiratory distress or use of accessory muscles. Able to speak in full sentences. HEENT: Normocephalic, atraumatic. Pupils reactive to light. NECK: Supple. Trachea is midline. No palpable adenopathy. CARDIAC: Regular rate and rhythm. Normal S1, S2. Unable to clearly appreciate any murmur. PULMONARY:prolonged expiration. No wheezing, ronchi, rales appreciated ABDOMEN: Obese, soft, nontender, and nondistended. Normal Bowel sounds EXTREMITIES: No lower extremity edema bilaterally LABORATORY DATA: Please see below ACTIVITY: [As tolerated]. DISCHARGE PLAN: Please take Augmentin 875mg /125mg PO BID for 4 more days Please take 2mg Dexamethasone daily for 3 more days F/u with with АЛЕКСАНДР Arambula within 2 weeks after hospital discharge. Please quarantine for 10 days from onset of symptoms. Please be compliant with meds If condition worsens or presents again, please report to the nearest ER DISPOSITION: Home DISCHARGE CONDITION: Fair TIME SPENT ON DISCHARGE: 40 minutes Vital Signs/I&Os Vital Signs Date Time Temp Pulse Resp B/P (MAP) Pulse Ox O2 Delivery O2 Flow Rate FiO2 03/22/20 08:45 72 119/57 03/22/20 08:00 97.6 18 91 Nasal Cannula 4.0 I&O- Last 24 Hours up to 6 AM 03/22/20 06:00 Intake Total 1020 ml Balance 1020 ml Laboratory Data Labs 24H Laboratory Tests 2 03/21/20 11:46: Bedside Glucose (Misc Panel) 147H 03/21/20 16:45: Bedside Glucose (Misc Panel) 229H 03/21/20 20:05: Bedside Glucose (Misc Panel) 222H 03/22/20 07:23: Immature Granulocyte % (Auto) 0.5, Neutrophils (%) (Auto) 77.8H, Lymphocytes (%) (Auto) 11.6L, Monocytes (%) (Auto) 9.9H, Eosinophils (%) (Auto) 0.0, Basophils (%) (Auto) 0.2, Neutrophils # (Auto) 5.2, Lymphocytes # (Auto) 0.8L, Monocytes # (Auto) 0.7, Eosinophils # (Auto) 0.0, Basophils # (Auto) 0.0, Nucleated Red Blood Cells % (auto) 0.0, Prothrombin Time 14.3H, Prothromb Time International Ratio 1.09, Activated Partial Thromboplast Time 35.9, Fibrinogen 414, Anion Gap 4L, Glomerular Filtration Rate > 60.0, Calcium Level 8.1L, Magnesium Level 2.1, Ferritin 430H, Total Bilirubin 0.3, Direct Bilirubin < 0.1, Aspartate Amino Transf (AST/SGOT) 17, Alanine Aminotransferase (ALT/SGPT) 25, Alkaline Phosphatase 59, [id number]-Type Natriuretic Peptide 56, Total Protein 6.5, Albumin 3.0L, Albumin/Globulin Ratio 0.9, Procalcitonin <0.05 CBC/BMP Laboratory Tests 03/22/20 07:23 FSBS Laboratory Tests Test 03/21/20 11:46 03/21/20 16:45 03/21/20 20:05 Range/Units Bedside Glucose (Misc Panel) 147 229 222 80-115 MG/DL Microbiology Microbiology 03/21/20 Blood Culture - Preliminary, Resulted No growth after 24 hours . All specim... 03/21/20 Blood Culture - Preliminary, Resulted No growth after 24 hours . All specim... 03/19/20 Blood Culture - Final, Complete Staphylococcus Hominis Ssp Patsy 03/19/20 Blood Culture - Preliminary, Resulted No Growth after 48 hours. All Specime... Discharge Medications Scheduled Amoxicillin/Potassium Clav (Augmentin 875-125 Tablet) 1 Each Tablet, 1 TAB PO BID Ascorbic Acid (Ascorbic Acid) 500 Mg Tablet, 1,000 MG PO DAILY, (Reported) Atenolol (Atenolol) 100 Mg Tablet, 100 MG PO DAILY, (Reported) Dexamethasone (Dexamethasone) 2 Mg Tablet, 2 MG PO DAILY Fluticasone/Vilanterol (Breo Ellipta 200-25 Mcg INH) 1 Each Blst.w.dev, 1 PUFF INH QHS, (Reported) Hydrochlorothiazide (Hydrochlorothiazide) 25 Mg Tablet, 25 MG PO DAILY, (Reported) Losartan Potassium (Losartan Potassium) 50 Mg Tablet, 50 MG PO BID, (Reported) Metformin HCl (Metformin HCl) 500 Mg Tablet, 500 MG PO BID, (Reported) Mv-Min/Folic/Vit K/Lycop/Coq10 (Daily Multivitamin Capsule) 1 Each Capsule, 1 CAP PO DAILY, (Reported) Tiotropium [place] (Spiriva) 18 Mcg Cap.w.dev, 18 MCG INH DAILY, (Reported) Scheduled PRN Albuterol Sulfate (Albuterol Sulfate Hfa) 8.5 Gm Hfa.aer.ad, 2 PUFF INH Q4H PRN for SHORTNESS OF BREATH, (Reported) Albuterol Sulfate (Albuterol Sulfate) 2.5 Mg/0.5 Ml Vial.neb, 2.5 MG INH TID PRN for SOB/WHEEZING, (Reported) Allergies Coded Allergies: Sulfa (Sulfonamide Antibiotics) (Verified Allergy, Intermediate, "temp 107", 05/21/19) GME ATTESTATION GME ATTESTATION My faculty preceptor for this patient encounter was physically present during the encounter and was fully available. All aspects of the patient interview, examination, medical decision making process, and medical care plan development were reviewed and approved by the faculty preceptor. The faculty preceptor is aware and concurs with the plan as stated in the body of this note and will attest to such by his/her cosignature. Renetta Zhou DO Mar 22, 2020 10:58
[2020-03-22 11:58] LABS: HEPATITIS B SURFACE ANTIGEN NEGATIVE (NEGATIVE)
[2020-03-22] MEDS: SODIUM CHLORIDE 0.9% INJ 10 ML SYR IV SCH (12:10)
[2020-03-23] MEDS ORDERED: REMDESIVIR 100 MG in NS 250 ML IV SCH (11:00)
== END 2020-03-22 14:20 | disposition home or self-care (01) | DRG 178 ==
LOC: M ED 12:11 → M ED INP 15:20 → ENRESERV 16:28 → M 4MAIN 18:15
PROVIDERS: ADMIT Family Medicine; ATTEND Internal Medicine
DX: U07.1 COVID-19 (principal); J44.1 Chronic obstructive pulmonary disease with (acute) exacerbation; J96.11 Chronic respiratory failure with hypoxia; E66.9 Obesity, unspecified; G47.33 Obstructive sleep apnea (adult) (pediatric); E78.5 Hyperlipidemia, unspecified; I11.9 Hypertensive heart disease without heart failure; E11.9 Type 2 diabetes mellitus without complications; Z79.899 Other long term (current) drug therapy; Z88.2 Allergy status to sulfonamides; Z68.33 Body mass index [BMI] 33.0-33.9, adult; Z87.891 Personal history of nicotine dependence; Z79.82 Long term (current) use of aspirin

== ENCOUNTER 2020-03-26 10:21 | Inpatient (IN) | payer MEDICARE, MEDICAID ==
[~2020-03-26] VITALS: Ht 175.3 cm; Wt 106.0 kg
[~2020-03-26 10:21] MED LIST changes: +ALB2.5NEB INH; +AUGM875T28 PO; +BREO1INH3 INH; +DEXA2TA PO
--- NOTE | 2020-03-26 11:07 | REP ---
INDICATION: Coronavirus workup COMPARISON: 03/19/2020 TECHNIQUE: Portable AP view of the chest FINDINGS: The mediastinum and cardiac silhouette are stable and within normal limits for portable technique. The lung ross demonstrate stable changes. Subtle super post left lower lobe atelectasis cannot be excluded and should be correlated with auscultation and physical examination. No effusion. No pneumothorax. Skeletal structures are intact. IMPRESSION: Chronic stable changes. Cannot exclude subtle superimposed left lower lobe infiltrate/atelectasis. <Electronically signed by Tushar Vazquez > 03/26/20 110
[2020-03-26 11:22] LABS: BASO % 0.2 % (0.0-1.0); EOS % 0.2 % (0.0-3.0); HEMATOCRIT 41.2 % (42.0-52.0); HEMOGLOBIN 13.4 g/dl (13.5-17.5); LYMPH # 0.5 10^3/uL (1.5-5.0); LYMPH % 5.7 % (24.0-44.0); MEAN CORPUSCULAR HEMOGLOBIN 28.3 pg (27.0-33.0); MEAN CORPUSCULAR HGB CONC 32.5 g/dl (32.0-36.5); MEAN CORPUSCULAR VOLUME 86.9 fl (80.0-96.0); MONO # 0.6 10^3/uL (0.0-0.8); MONO % 7.7 % (0.0-5.0); NEUTROPHILS # 7.1 10^3/uL (1.5-8.5); NEUTROPHILS % 85.6 % (36.0-66.0); PLATELET COUNT, AUTOMATED 182 10^3/uL (150-450); RED BLOOD COUNT 4.74 10^6/uL (4.30-6.10); WHITE BLOOD COUNT 8.3 10^3/uL (4.0-10.0)
[2020-03-26] MEDS: COMBIVENT RESPIMAT 100-20MCG INHALER 4GM INH SCH ×3 (11:24→12:19)
[2020-03-26 11:38] LABS: INR 1.05; PROTHROMBIN TIME 13.9 SECONDS (12.5-14.3)
[2020-03-26 11:39] LABS: PARTIAL THROMBOPLASTIN TIME 30.4 SECONDS (24.2-38.5)
[2020-03-26 11:41] LABS: D-DIMER QUANT 673.35 ng/ml (<500)
[2020-03-26 12:06] LABS: ALBUMIN 3.3 GM/DL (3.2-5.2); ALT/SGPT 42 U/L (12-78); BILIRUBIN,TOTAL 0.5 MG/DL (0.2-1.0); BLOOD UREA NITROGEN 27 MG/DL (7-18); C REACTIVE PROTEIN QUANTITATIV 7.13 MG/DL (0.00-0.30); CALCIUM LEVEL 8.9 MG/DL (8.8-10.2); CARBON DIOXIDE LEVEL 30 MEQ/L (21-32); CHLORIDE LEVEL 98 MEQ/L (98-107); CK-MB VALUE MASS < 1.0 NG/ML (<3.6); CPK CREATINE PHOSPHOKINASE 25 U/L (39-308); CREATININE FOR GFR 0.92 MG/DL (0.70-1.30); FERRITIN 527 NG/ML (26-388); GLOMERULAR FILTRATION RATE > 60.0 (>49); GLUCOSE, FASTING 138 MG/DL (70-100); LDH LACTATE DEHYDROGENASE 191 U/L (87-241); MAGNESIUM LEVEL 1.9 MG/DL (1.8-2.4); POTASSIUM SERUM 4.4 MEQ/L (3.5-5.1); SODIUM LEVEL 133 MEQ/L (136-145); TOTAL PROTEIN 6.1 GM/DL (6.4-8.2); TROPONIN I < 0.02 NG/ML (< 0.10)
[2020-03-26 12:29] LABS: VENOUS BASE EXCESS 2.6 (-2.0-2.0); VENOUS HCO3 26.1 MEQ/L (23.0-27.0); VENOUS O2 SATURATION 98.4 % (60.0-80.0); VENOUS PARTIAL PRESSURE CO2 36.6 mmHg (38.0-50.0); VENOUS PARTIAL PRESSURE O2 125.5 mmHg (30.0-50.0); VENOUS PH 7.471 UNITS (7.330-7.430); VENOUS STANDARD HCO3 26.8 MEQ/L; VENOUS TOTAL CO2 27.2 MEQ/L (24.0-28.0)
[2020-03-26] MEDS ORDERED: ALBUTEROL 90 MCG/ACT 8GM HFA INHALER INH PRN (15:30)
[2020-03-26] MEDS ORDERED: GLUCAGON INJ 1MG VIAL SC PRN (15:30)
[2020-03-26] MEDS ORDERED: GLUCOSE 4GM CHEW TABLET PO PRN (15:30)
[2020-03-26] MEDS ORDERED: ALBUTEROL SULFATE 2.5 MG/0.5 ML INH NEB SOLN INH PRN (15:30)
[2020-03-26] MEDS ORDERED: DEXTROSE 50% 50 ML SYRINGE IV PRN (15:30)
[2020-03-26] MEDS ORDERED: ACETAMINOPHEN TAB 650MG DOSE (2X325MG) PO PRN (15:30)
[2020-03-26] MEDS ORDERED: ISOVUE-370 76% 100ML VIAL As Ordered ONE (16:02)
--- NOTE | 2020-03-26 17:06 | HPEPDOC ---
[facility] Medical History & Physical Date of Admission Mar 26, 2020 Date of Service: Mar 26, 2020 Attending Physician: SARA LIVE MD History and Physical CHIEF COMPLAINT: Worsening acute on chronic hypoxemic respiratory failure (checks home pulse ox on baseline 3L) and dyspnea i/s/o recent covid-19 PNA HISTORY OF PRESENT ILLNESS: 69-year-old M with COPD with chronic hypoxemic respiratory failure, diabetes, hypertension, hyperlipidemia, suspected CIELO, and previous nicotine dependence, who reports that he and his entire family began having respiratory illness symptoms on and he was eventually diagnosed with covid-19 infection on 03/19/2020 and required admission from 03/22-03/24 for covid-19 PNA with acute on chronic hypoxemic respiratory failure during which he was treated wtih remdesevir/dexamethasone/antibiotics and he was eventually discharged home on dexamethasone and Augmentin. During the last admission, on 03/19/[address] chest that did not show any focal opacities or infiltrates and was suspected that his dyspnea and hypoxia at the time was likely in the setting of an acute COPD exacerbation. He did have significant diminished breath sounds on exam and his dexamethasone was switched to solumedrol. On discharge, his lungs sounded clear and he was instructed to take Augmentin and dexamethasone for 4 more days to end 03/27. Today he returned to the ED reporting worsening dyspnea on exertion and some at rest with worsening hypoxemia when he check his saturation at home and found that over the last 2 days, he was saturation in the low 80s while on his baseline 3L. He reports some episodic subjective fevers, weakness and poor exercise tolerance recently without nathan chest pain, palpitations, peripheral edema, dizziness, LOC. In the ED, he was saturation 88-90% on 4L and would desaturate to 84% with mild exertion. Workup was notable for LLL infiltrate on CXR, procalcitonin <0.05, CRP of 7.13, ferritin 527, D dimer 673, Na 133, K 4.4, Cr 0.92, WBC 8.3, Hgb 13.4, platelets 124. He is now being admitted for likely acute on chronic hypoxemic respiratory failure likely 2/2 COPD exacerbation in the setting of his recent covid-19 PNA, vs. potential PE vs. unlike worsening covid-19 given that first symptoms were 15 days ago. PAST MEDICAL HISTORY: COPD with chronic hypoxemia respiratory failure. Hypertension. Hyperlipidemia. NIDDM Suspected CIELO refusing evaluation. Obesity. PAST SURGICAL HISTORY: Tonsillectomy. Right carpal tunnel repair. SOCIAL HISTORY: Previous nicotine dependence. No alcohol No illicit drug use ROS: 10 point ROS was otherwise negative except as noted in the HPI above PHYSICAL EXAMINATION: VITAL SIGNS: See below. Saturating 90% on 4L NC at rest GENERAL: AAOx3. NAD, well developed and nourished. HEENT: Normocephalic, atraumatic. Pupils reactive to light. EOMI. MMM NECK: Supple. Trachea is midline. No palpable adenopathy. CARDIAC: Regular rate and rhythm. Normal S1, S2. No m/r/g PULMONARY: No signs of respiratory distress or use of accessory muscles. Speaking in full sentences. Prolonged expiration. No wheezing, rhonchi, rales appreciated ABDOMEN: Obese, soft, nontender, and nondistended. Normal Bowel sounds EXTREMITIES: No lower extremity edema bilaterally NEURO: CN3-12 intact, moving all extremities PSYCH: AOx3 LABS AND IMAGING: Summarized above Assessment: 69-year-old M with COPD with chronic hypoxemic respiratory failure, diabetes, hypertension, hyperlipidemia, suspected CIELO, and previous nicotine dependence, who reports that he and his entire family began having respiratory illness sy mptoms on and he was eventually diagnosed with covid-19 infection on 03/19/2020 and required admission from 03/22-03/24 for covid-19 PNA with acute on chronic hypoxemic respiratory failure during which he was treated wtih remdesevir/dexamethasone/antibiotics and he was eventually discharged home on dexamethasone and Augmentin, who now returns with worsening dyspnea and hypoxemia and being admitted for acute on chronic hypoxemic respiratory failure likely 2/2 COPD exacerbation in the setting of his recent covid-19 PNA, vs. potential PE vs. unlike worsening covid-19 given that first symptoms were 15 days ago. Acute on chronic hypoxemic respiratory failure i/s/o of recent covid-19 infectio n: likely 2/2 COPD exacerbation in the setting of his recent covid-19 PNA, vs. potential PE vs. unlike worsening covid-19 given that first symptoms were 15 days ago. -solumedrol IV 80Q8H for now -supplemental O2, to goal >88% O2 saturation -continue advair, symbicort mdis -albuterol mdi PRN -CTA chest for worsening hypoxemia with acute drop with exertion and recent covid-19 diagnosed 14d ago -no abx for now despite LLL infiltrate, given negative procalcitonin and recent course of antibiotics -appears euvolemic on examination at this time -protonix 40mg PO daily for GI ppx HTN: -continue home HCTZ and ARB DM: -hold home metformin and will give SSI AC/HS while inpatient -FSBG AC/HS -hypoglycemia protocol -consistent carb diet DVT ppx: lovenox 40 QD Dispo: 4 main, medsurg Vital Signs Vital Signs Date Time Temp Pulse Resp B/P (MAP) Pulse Ox O2 Delivery O2 Flow Rate FiO2 03/26/20 14:31 79 22 91 Nasal Cannula 3.0 03/26/20 14:15 101/61 (74) 03/26/20 11:37 98.2 Laboratory Data Labs 24H Laboratory Tests 2 03/26/20 10:57: Immature Granulocyte % (Auto) 0.6, Neutrophils (%) (Auto) 85.6H, Lymphocytes (%) (Auto) 5.7L, Monocytes (%) (Auto) 7.7H, Eosinophils (%) (Auto) 0.2, Basophils (%) (Auto) 0.2, Neutrophils # (Auto) 7.1, Lymphocytes # (Auto) 0.5L, Monocytes # (Auto) 0.6, Eosinophils # (Auto) 0.0, Basophils # (Auto) 0.0, Nucleated Red Blood Cells % (auto) 0.0, Prothrombin Time 13.9, Prothromb Time International Ratio 1.05, Activated Partial Thromboplast Time 30.4, Fibrinogen 641H, D-Dimer, Quantitative 673.35H, Anion Gap 5L, Glomerular Filtration Rate > 60.0, Lactic Acid Level 1.8, Calcium Level 8.9, Magnesium Level 1.9, Ferritin 527H, Total Bilirubin 0.5, Aspartate Amino Transf (AST/SGOT) 18, Alanine Aminotransferase (ALT/SGPT) 42, Alkaline Phosphatase 64, Lactate Dehydrogenase 191, Total Creatine Kinase 25L, Creatine Kinase MB < 1.0, Creatine Kinase MB Relative Index 4.00, Troponin I < 0.02, C-Reactive Protein, Quantitative 7.13H, Total Protein 6.1L, Albumin 3.3, Albumin/Globulin Ratio 1.2, Procalcitonin <0.05 03/26/20 11:11: Blood Gas Bicarbonate Standard 26.8, Venous Blood pH 7.471H, Venous Blood Partial Pressure CO2 36.6L, Venous Blood Partial Pressure O2 125.5H, Venous Blood Total Carbon Dioxide 27.2, Venous Blood HCO3 26.1, Venous Blood Oxygen Saturation 98.4H, Venous Blood Base Excess 2.6H CBC/BMP Laboratory Tests 03/26/20 10:57 Microbiology Microbiology 03/26/20 Blood Culture, Received Pending 03/26/20 Blood Culture, Received Pending Home Medications Scheduled Amoxicillin/Potassium Clav (Augmentin 875-125 Tablet) 1 Each Tablet, 1 TAB PO BID Ascorbic Acid (Ascorbic Acid) 500 Mg Tablet, 1,000 MG PO DAILY Atenolol (Atenolol) 100 Mg Tablet, 100 MG PO DAILY Dexamethasone (Dexamethasone) 2 Mg Tablet, 2 MG PO DAILY Fluticasone/Vilanterol (Breo Ellipta 200-25 Mcg INH) 1 Each Blst.w.dev, 1 PUFF INH QHS Hydrochlorothiazide (Hydrochlorothiazide) 25 Mg Tablet, 25 MG PO DAILY Losartan Potassium (Losartan Potassium) 50 Mg Tablet, 50 MG PO BID Metformin HCl (Metformin HCl) 500 Mg Tablet, 500 MG PO BID Mv-Min/Folic/Vit K/Lycop/Coq10 (Daily Multivitamin Capsule) 1 Each Capsule, 1 CAP PO DAILY Tiotropium [place] (Spiriva) 18 Mcg Cap.w.dev, 18 MCG INH DAILY Scheduled PRN Albuterol Sulfate (Albuterol Sulfate Hfa) 8.5 Gm Hfa.aer.ad, 2 PUFF INH Q4H PRN for SHORTNESS OF BREATH Albuterol Sulfate (Albuterol Sulfate) 2.5 Mg/0.5 Ml Vial.neb, 2.5 MG INH TID PRN for SOB/WHEEZING Allergies Coded Allergies: Sulfa (Sulfonamide Antibiotics) (Verified Allergy, Intermediate, "temp 107", 05/21/19) A-FIB/CHADSVASC A-FIB History Current/History of A-Fib/PAF?: No Current PO Anticoag Therapy: No Age/Risk Factor Scoring CHADSVASC: CHADSVASC Response (Comments) Value Age Risk Factor Age 65-74 years old 1 Gender Risk Factor Male 0 Hx of CHF No 0 Hx of HTN Yes 1 Hx of Stroke/TIA/or VTE No 0 Hx of Diabetes Yes 1 Hx of Vascular Disease No 0 Total 3 Treatment Treatment ordered: NONE Reason Anticoagulant not given: Not indicated/[id number] SARA LIVE MD Mar 26, 2020 16:10
[2020-03-26] MEDS: HumaLOG INSULIN (NovoLOG) PER UNIT SC SCH ×2 (17:30→21:00)
--- NOTE | 2020-03-26 18:00 | REPVR ---
PROCEDURE INFORMATION: Exam: CT Angiography Chest With Contrast Exam date and time: 03/26/2020 3:49 PM Age: 70 years old Clinical indication: Other: Hypoxemia; Additional info: Acute on chronic hypoxemia, recent covid TECHNIQUE: Imaging protocol: Computed tomographic angiography of the chest with intravenous contrast. 3D rendering (Not supervised by radiologist): MIP and/or 3D reconstructed images were created by the technologist. Radiation optimization: All CT scans at this facility use at least one of these dose optimization techniques: automated exposure control; mA and/or kV adjustment per patient size (includes targeted exams where dose is matched to clinical indication); or iterative reconstruction. Contrast material: ISOVUE 370; Contrast volume: 75 ml; Contrast route: INTRAVENOUS (IV); COMPARISON: CT ANGIO CHEST 05/22/2019 9:48 AM FINDINGS: Pulmonary arteries: Motion induced image degradation limits evaluation of the peripheral pulmonary arteries. No filling defects are identified within the main pulmonary trunk, right or left main pulmonary arteries or the proximal lobar arteries. A tiny peripheral pulmonary embolus cannot be completely excluded by this examination. Aorta: Unremarkable. No aortic aneurysm. No aortic dissection. Lungs: Paraseptal and centrilobular pulmonary emphysema, most significant in the lung apices. Multiple band like opacities within the right and left lungs likely secondary to atelectasis and/or scar. No nathan pulmonary consolidation. Pleural space: Unremarkable. No pneumothorax. No pleural effusion. Heart: Unremarkable. No cardiomegaly. No pericardial effusion. Lymph nodes: Mildly prominent mediastinal and hilar lymph nodes, unchanged. Bones/joints: Degenerative spondylosis of the thoracic spine with mild accentuation of thoracic kyphosis. No fracture. Soft tissues: Unremarkable. IMPRESSION: 1. Slightly suboptimal evaluation of the pulmonary arteries secondary to motion artifact. No central pulmonary arterial embolism is identified. A tiny peripheral pulmonary embolus cannot be completely excluded. 2. Multifocal lung opacities likely atelectasis and/or scar. 3. Pulmonary emphysema, most significant in the lung apices. Electronically signed by: Kit Howard On 03/26/2020 18:00:11 PM
[2020-03-26] MEDS: methylPREDNISolone 125MG 2ML VIAL IV SCH (19:15)
[2020-03-26] MEDS: LOSARTAN 50MG TABLET PO SCH (21:00)
--- NOTE | 2020-03-26 21:38 | ECGEPIP ---
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
[2020-03-26] MEDS: ADVAIR HFA 230/21MCG INHALER INH SCH (22:29)
[2020-03-27] MEDS: methylPREDNISolone 125MG 2ML VIAL IV SCH ×3 (02:37→17:28)
[2020-03-27] MEDS: LOSARTAN 50MG TABLET PO SCH ×2 (02:44→21:43)
[2020-03-27 03:43] LABS: BASO % 0.2 % (0.0-1.0); HEMATOCRIT 39.6 % (42.0-52.0); HEMOGLOBIN 12.9 g/dl (13.5-17.5); LYMPH # 0.5 10^3/uL (1.5-5.0); LYMPH % 7.7 % (24.0-44.0); MEAN CORPUSCULAR HEMOGLOBIN 28.4 pg (27.0-33.0); MEAN CORPUSCULAR HGB CONC 32.6 g/dl (32.0-36.5); MEAN CORPUSCULAR VOLUME 87.2 fl (80.0-96.0); MONO # 0.2 10^3/uL (0.0-0.8); MONO % 3.4 % (0.0-5.0); NEUTROPHILS # 5.5 10^3/uL (1.5-8.5); NEUTROPHILS % 88.1 % (36.0-66.0); PLATELET COUNT, AUTOMATED 177 10^3/uL (150-450); RED BLOOD COUNT 4.54 10^6/uL (4.30-6.10); WHITE BLOOD COUNT 6.3 10^3/uL (4.0-10.0)
[2020-03-27 03:45] VITALS: BP 133/67
[2020-03-27 03:55] LABS: INR 1.06
[2020-03-27 03:56] LABS: PARTIAL THROMBOPLASTIN TIME 32.4 SECONDS (24.2-38.5)
[2020-03-27 03:59] LABS: D-DIMER QUANT 966.57 ng/ml (<500)
[2020-03-27 04:00] VITALS: O2SAT 91
[2020-03-27 04:25] LABS: ALT/SGPT 37 U/L (12-78); BILIRUBIN,DIRECT 0.1 MG/DL (0.0-0.2); BILIRUBIN,TOTAL 0.3 MG/DL (0.2-1.0); BLOOD UREA NITROGEN 24 MG/DL (7-18); CALCIUM LEVEL 8.7 MG/DL (8.8-10.2); CARBON DIOXIDE LEVEL 29 MEQ/L (21-32); CHLORIDE LEVEL 99 MEQ/L (98-107); CREATININE FOR GFR 0.89 MG/DL (0.70-1.30); FERRITIN 625 NG/ML (26-388); GLOMERULAR FILTRATION RATE > 60.0 (>49); GLUCOSE, FASTING 224 MG/DL (70-100); LDH LACTATE DEHYDROGENASE 248 U/L (87-241); MAGNESIUM LEVEL 1.9 MG/DL (1.8-2.4); NT-PRO BNP 121 PG/ML (<125); POTASSIUM SERUM 4.5 MEQ/L (3.5-5.1); SODIUM LEVEL 133 MEQ/L (136-145); TOTAL PROTEIN 6.2 GM/DL (6.4-8.2); TRIGLYCERIDES LEVEL 62 MG/DL (<150); TROPONIN I < 0.02 NG/ML (< 0.10)
[2020-03-27] MEDS: HumaLOG INSULIN (NovoLOG) PER UNIT SC SCH ×4 (07:30→21:00)
[2020-03-27 08:00] VITALS: O2SAT 93
[2020-03-27] MEDS: ADVAIR HFA 230/21MCG INHALER INH SCH ×2 (08:23→20:00)
[2020-03-27] MEDS: ENOXAPARIN 40MG/0.4ML SYRINGE (J1650 PER 10MG) SC SCH (08:56)
[2020-03-27] MEDS: ASCORBIC ACID 500 MG TAB PO SCH (08:56)
[2020-03-27] MEDS: hydroCHLOROthiazide 25 MG TAB PO SCH (08:56)
[2020-03-27] MEDS: MULTIVITAMINS/MINERALS THERAP 1 TAB PO SCH (08:57)
[2020-03-27] MEDS: PANTOPRAZOLE 40MG TAB (PROTONIX) PO SCH (08:57)
[2020-03-27] MEDS: atenoloL 50 MG TAB PO SCH (08:57)
[2020-03-27] MEDS ORDERED: TIOTROPIUM INHALER/CAPSULE (SPIRIVA) INH SCH ×2 (09:00→19:30)
[2020-03-27 12:00] VITALS: BP 114/70; O2SAT 89
[2020-03-27 16:00] VITALS: O2SAT 91
[2020-03-27 17:00] LABS: C REACTIVE PROTEIN QUANTITATIV 6.96 MG/DL (0.00-0.30); TROPONIN I < 0.02 NG/ML (< 0.10)
--- NOTE | 2020-03-27 19:14 | IPNPDOC ---
Text Note Date of Service The patient was seen on 03/27/20. NOTE Subjective: No any acute events overnight. Patient continues to have shortness of breath, currently he is on 5 L via nasal cannula. His baseline from 2 to 3 L Objective: GENERAL APPEARANCE: NAD HEENT: no scleral icterus, no JVD, EOMI CARDIOVASCULAR: S1S2 LUNGS: Diminished lung sounds bilaterally ABDOMEN: soft & not tender w palpitation MUSCULOSKELETAL: no cyanosis, no swelling INTEGUMENT: no generalized pallor NEUROLOGICAL: cranial nerve function from 2-12 intact intact, follows commands, speech not dysarthric Assessment and plan 69-year-old M with COPD with chronic hypoxemic respiratory failure, diabetes, hypertension, hyperlipidemia, suspected CIELO, and previous nicotine dependence, who reports that he and his entire family began having respiratory illness symptoms on and he was eventually diagnosed with covid-19 infection on 03/19/2020 and required admission from 03/22-03/24 for covid-19 PNA with acute on chronic hypoxemic respiratory failure during which he was treated wtih remdesevir/dexamethasone/antibiotics and he was eventually discharged home on d examethasone and Augmentin, who now returns with worsening dyspnea and hypoxemia and being admitted for acute on chronic hypoxemic respiratory failure Acute on chronic respiratory failure Patient chronically on oxygen 2-3 L at home Most likely patient developed COPD exacerbation superimposed with reactive pneumonitis after viral infection due to COVID19 Continue inhalers Continue IV steroids CTA negative for pulmonary emboli Hypertension Blood pressure under control Continue home cardioprotective medications DM Glucose level under control Continue insulin sliding scale Diabetes diet COPD exacerbation See above Hyperlipidemia continue statin VS,Fishbone, I+O VS, Fishbone, I+O Laboratory Tests 03/27/20 03:36 Vital Signs Date Time Temp Pulse Resp B/P (MAP) Pulse Ox O2 Delivery O2 Flow Rate FiO2 03/27/20 16:00 5.0 03/27/20 16:00 91 Nasal Cannula 03/27/20 12:00 98.3 73 20 114/70 (85) I&O- Last 24 Hours up to 6 AM 03/27/20 06:00 Intake Total 150 ml Balance 150 ml SEAN STANLEY DO Mar 27, 2020 19:14
[2020-03-27] MEDS: COMBIVENT RESPIMAT 100-20MCG INHALER 4GM INH SCH (20:00)
[2020-03-27 20:20] VITALS: BP 118/58
[2020-03-28] MEDS: methylPREDNISolone 125MG 2ML VIAL IV SCH ×3 (01:34→18:16)
[2020-03-28] MEDS: COMBIVENT RESPIMAT 100-20MCG INHALER 4GM INH SCH ×3 (04:12→15:57)
[2020-03-28 04:59] VITALS: BP 130/62
[2020-03-28 05:12] LABS: BASO % 0.1 % (0.0-1.0); HEMATOCRIT 41.4 % (42.0-52.0); HEMOGLOBIN 13.6 g/dl (13.5-17.5); LYMPH # 0.7 10^3/uL (1.5-5.0); LYMPH % 7.6 % (24.0-44.0); MEAN CORPUSCULAR HEMOGLOBIN 29.1 pg (27.0-33.0); MEAN CORPUSCULAR HGB CONC 32.9 g/dl (32.0-36.5); MEAN CORPUSCULAR VOLUME 88.5 fl (80.0-96.0); MONO # 0.7 10^3/uL (0.0-0.8); MONO % 7.6 % (0.0-5.0); NEUTROPHILS # 7.8 10^3/uL (1.5-8.5); NEUTROPHILS % 83.8 % (36.0-66.0); PLATELET COUNT, AUTOMATED 187 10^3/uL (150-450); RED BLOOD COUNT 4.68 10^6/uL (4.30-6.10); WHITE BLOOD COUNT 9.3 10^3/uL (4.0-10.0)
[2020-03-28 05:21] LABS: INR 1.09; PROTHROMBIN TIME 14.4 SECONDS (12.5-14.3)
[2020-03-28 05:22] LABS: PARTIAL THROMBOPLASTIN TIME 29.2 SECONDS (24.2-38.5)
[2020-03-28 05:25] LABS: D-DIMER QUANT 576.55 ng/ml (<500)
[2020-03-28 05:46] LABS: ALBUMIN 2.8 GM/DL (3.2-5.2); ALT/SGPT 32 U/L (12-78); BILIRUBIN,DIRECT 0.1 MG/DL (0.0-0.2); BILIRUBIN,TOTAL 0.3 MG/DL (0.2-1.0); BLOOD UREA NITROGEN 25 MG/DL (7-18); CALCIUM LEVEL 8.6 MG/DL (8.8-10.2); CARBON DIOXIDE LEVEL 30 MEQ/L (21-32); CHLORIDE LEVEL 101 MEQ/L (98-107); GLOMERULAR FILTRATION RATE > 60.0 (>49); GLUCOSE, FASTING 176 MG/DL (70-100); MAGNESIUM LEVEL 2.1 MG/DL (1.8-2.4); NT-PRO BNP 97 PG/ML (<125); POTASSIUM SERUM 4.2 MEQ/L (3.5-5.1); SODIUM LEVEL 137 MEQ/L (136-145); TOTAL PROTEIN 6.1 GM/DL (6.4-8.2); TROPONIN I < 0.02 NG/ML (< 0.10)
[2020-03-28 05:47] LABS: FERRITIN 712 NG/ML (26-388)
[2020-03-28] MEDS: ADVAIR HFA 230/21MCG INHALER INH SCH (08:06)
[2020-03-28 08:59] VITALS: BP 120/55
[2020-03-28] MEDS: MULTIVITAMINS/MINERALS THERAP 1 TAB PO SCH (09:02)
[2020-03-28 09:03] VITALS: BP 120/55
[2020-03-28] MEDS: PANTOPRAZOLE 40MG TAB (PROTONIX) PO SCH (09:03)
[2020-03-28] MEDS: hydroCHLOROthiazide 25 MG TAB PO SCH (09:03)
[2020-03-28] MEDS: atenoloL 50 MG TAB PO SCH (09:03)
[2020-03-28] MEDS: ASCORBIC ACID 500 MG TAB PO SCH (09:03)
[2020-03-28] MEDS: LOSARTAN 50MG TABLET PO SCH (09:03)
[2020-03-28] MEDS: ENOXAPARIN 40MG/0.4ML SYRINGE (J1650 PER 10MG) SC SCH (09:04)
[2020-03-28] MEDS: HumaLOG INSULIN (NovoLOG) PER UNIT SC SCH ×3 (09:04→18:16)
[2020-03-28 09:35] VITALS: O2SAT 91
[2020-03-28 15:39] VITALS: BP 131/63
[2020-03-28] MEDS ORDERED: PANT40TA29 PO (17:10)
--- NOTE | 2020-03-28 20:51 | DS.PDOC ---
Discharge Summary General Date of Admission Mar 26, 2020 at 15:30 Date of Discharge 03/28/20 Discharge Summary PROCEDURES PERFORMED DURING STAY: [None]. ADMITTING DIAGNOSES: Acute on chronic respiratory failure Hypertension DM COPD exacerbation Hyperlipidemia DISCHARGE DIAGNOSES: Acute on chronic respiratory failure Hypertension DM COPD exacerbation Hyperlipidemia COMPLICATIONS/CHIEF COMPLAINT: Copd Covid 19 Hypoxia. HISTORY OF PRESENT ILLNESS:69-year-old M with COPD with chronic hypoxemic respiratory failure, diabetes, hypertension, hyperlipidemia, suspected CIELO, and previous nicotine dependence, who reports that he and his entire family began having respiratory illness symptoms on and he was eventually diagnosed with covid-19 infection on 03/19/2020 and required admission from 03/22-03/24 for covid-19 PNA with acute on chronic hypoxemic respiratory failure during which he was treated wtih remdesevir/dexamethasone/antibiotics and he was eventually discharged home on dexamethasone and Augmentin, who now returns with worsening dyspnea and hypoxemia and being admitted for acute on chronic hypoxemic respiratory failure HOSPITAL COURSE: During hospital stay following issues addressed Acute on chronic respiratory failure Patient chronically on oxygen 2-3 L at home Most likely patient developed COPD exacerbation superimposed with reactive pneumonitis after viral infection due to COVID19 Continue inhalers Continue IV steroids CTA negative for pulmonary emboli Hypertension Blood pressure under control Continue home cardioprotective medications DM Glucose level under control Continue insulin sliding scale Diabetes diet COPD exacerbation See above Hyperlipidemia continue statin DISCHARGE MEDICATIONS: Please see below. ALLERGIES: Please see below. PHYSICAL EXAMINATION ON DISCHARGE: VITAL SIGNS: Please see below. HEENT: no scleral icterus, no JVD, EOMI CARDIOVASCULAR: S1S2 LUNGS: Diminished lung sounds bilaterally ABDOMEN: soft & not tender w palpitation MUSCULOSKELETAL: no cyanosis, no swelling INTEGUMENT: no generalized pallor NEUROLOGICAL: cranial nerve function from 2-12 intact intact, follows commands, speech not dysarthric LABORATORY DATA: Please see below. IMAGING: [facility] NAME: LIZY FLORENCE DATE OF : 1950 BUSINESS NUMBER: [id number] AGE: 70 SEX: M REPORT #: [id number] ROOM: ED INP TECHNOLOGIST: KENNEY DOCTOR: SARA LIVE MD Ordered for Date&Time: 03/26/20 1549 cc: [~ rep ct ivnm] Service Date&Time: This report is in Signed status. Interpretation performed by [facility]. Thank you for having your radiology procedures performed at [facility] RADIOLOGY REPORT Date&Time printed: [~ rep prt dt last] [~ rep prt tm last] Page [address] of [address] [id number] RADIOLOGY REPORT This report is in Signed status. Interpretation performed by [facility]. Thank you for having your radiology procedures performed at [facility] RADIOLOGY REPORT Date&Time printed: [~ rep prt dt last] [~ rep prt tm last] Page 1 of 1 PROCEDURE INFORMATION: Exam: CT Angiography Chest With Contrast Exam date and time: 03/26/2020 3:49 PM Age: 70 years old Clinical indication: Other: Hypoxemia; Additional info: Acute on chronic hypoxemia, recent covid TECHNIQUE: Imaging protocol: Computed tomographic angiography of the chest with intravenous contrast. 3D rendering (Not supervised by radiologist): MIP and/or 3D reconstructed images were created by the technologist. Radiation optimization: All CT scans at this facility use at least one of these dose optimization techniques: automated exposure control; mA and/or kV adjustment per patient size (includes targeted exams where dose is matched to clinical indication); or iterative reconstruction. Contrast material: ISOVUE 370; Contrast volume: 75 ml; Contrast route: INTRAVENOUS (IV); COMPARISON: CT ANGIO CHEST 05/22/2019 9:48 AM FINDINGS: Pulmonary arteries: Motion induced image degradation limits evaluation of the peripheral pulmonary arteries. No filling defects are identified within the main pulmonary trunk, right or left main pulmonary arteries or the proximal lobar arteries. A tiny peripheral pulmonary embolus cannot be completely excluded by this examination. Aorta: Unremarkable. No aortic aneurysm. No aortic dissection. Lungs: Paraseptal and centrilobular pulmonary emphysema, most significant in the lung apices. Multiple band like opacities within the right and left lungs likely secondary to atelectasis and/or scar. No nathan pulmonary consolidation. Pleural space: Unremarkable. No pneumothorax. No pleural effusion. Heart: Unremarkable. No cardiomegaly. No pericardial effusion. Lymph nodes: Mildly prominent mediastinal and hilar lymph nodes, unchanged. Bones/joints: Degenerative spondylosis of the thoracic spine with mild accentuation of thoracic kyphosis. No fracture. Soft tissues: Unremarkable. IMPRESSION: 1. Slightly suboptimal evaluation of the pulmonary arteries secondary to motion artifact. No central pulmonary arterial embolism is identified. A tiny peripheral pulmonary embolus cannot be completely excluded. 2. Multifocal lung opacities likely atelectasis and/or scar. 3. Pulmonary emphysema, most significant in the lung apices. Electronically signed by: Kit Ayala On 03/26/2020 18:00:11 PM DD: KIT AYALA MD 03/26/20 1549 DT: NEIL 03/26/20 1800 DS: NATASHA 03/26/20 1800 [~ rep ct labl] PROGNOSIS: Fair ACTIVITY: [As tolerated]. DIET: Cardiac DISPOSITION: 01 Home, Self-Care. ITEMS TO FOLLOWUP ON ON OUTPATIENT: Follow-up with PCP in 3-5 days. DISCHARGE CONDITION: [Stable]. TIME SPENT ON DISCHARGE: Greater than40 minutes. Vital Signs/I&Os Vital Signs Date Time Temp Pulse Resp B/P (MAP) Pulse Ox O2 Delivery O2 Flow Rate FiO2 03/28/20 15:39 96.5 77 19 131/63 (85) 93 Nasal Cannula 3.0 I&O- Last 24 Hours up to 6 AM 03/28/20 06:00 Intake Total 2700 ml Output Total 2200 ml Balance 500 ml Laboratory Data Labs 24H Laboratory Tests 2 03/28/20 04:48: Immature Granulocyte % (Auto) 0.9, Neutrophils (%) (Auto) 83.8H, Lymphocytes (%) (Auto) 7.6L, Monocytes (%) (Auto) 7.6H, Eosinophils (%) (Auto) 0.0, Basophils (%) (Auto) 0.1, Neutrophils # (Auto) 7.8, Lymphocytes # (Auto) 0.7L, Monocytes # (Auto) 0.7, Eosinophils # (Auto) 0.0, Basophils # (Auto) 0.0, Nucleated Red Blood Cells % (auto) 0.0, Procalcitonin <0.05 03/28/20 04:49: Prothrombin Time 14.4H, Prothromb Time International Ratio 1.09, Activated Partial Thromboplast Time 29.2, Fibrinogen 647H, D-Dimer, Quantitative 576.55H, Anion Gap 6L, Glomerular Filtration Rate > 60.0, Calcium Level 8.6L, Magnesium Level 2.1, Ferritin 712H, Total Bilirubin 0.3, Direct Bilirubin 0.1, Aspartate Amino Transf (AST/SGOT) 12, Alanine Aminotransferase (ALT/SGPT) 32, Alkaline Phosphatase 54, Troponin I < 0.02, C-Reactive Protein, Quantitative 4.90H, BP-Mrs-D-Type Natriuretic Peptide 97, Total Protein 6.1L, Albumin 2.8L, Albumin/Globulin Ratio 0.8 CBC/BMP Laboratory Tests 03/28/20 04:48 03/28/20 04:49 Microbiology Microbiology 03/26/20 Blood Culture - Preliminary, Resulted No Growth after 48 hours. All Specime... 03/26/20 Blood Culture - Preliminary, Resulted No Growth after 48 hours. All Specime... Discharge Medications Scheduled Amoxicillin/Potassium Clav (Augmentin 875-125 Tablet) 1 Each Tablet, 1 TAB PO BID Ascorbic Acid (Ascorbic Acid) 500 Mg Tablet, 1,000 MG PO DAILY, (Reported) Atenolol (Atenolol) 100 Mg Tablet, 100 MG PO DAILY, (Reported) Dexamethasone (Dexamethasone) 2 Mg Tablet, 2 MG PO DAILY Fluticasone/Vilanterol (Breo Ellipta 200-25 Mcg INH) 1 Each Blst.w.dev, 1 PUFF INH QHS, (Reported) Hydrochlorothiazide (Hydrochlorothiazide) 25 Mg Tablet, 25 MG PO DAILY, (Reported) Losartan Potassium (Losartan Potassium) 50 Mg Tablet, 50 MG PO BID, (Reported) Metformin HCl (Metformin HCl) 500 Mg Tablet, 500 MG PO BID, (Reported) Mv-Min/Folic/Vit K/Lycop/Coq10 (Daily Multivitamin Capsule) 1 Each Capsule, 1 CAP PO DAILY, (Reported) Pantoprazole Sodium (Pantoprazole Sodium) 40 Mg Tablet.dr, 40 MG PO DAILY Tiotropium [place] (Spiriva) 18 Mcg Cap.w.dev, 18 MCG INH DAILY, (Reported) Scheduled PRN Albuterol Sulfate (Albuterol Sulfate Hfa) 8.5 Gm Hfa.aer.ad, 2 PUFF INH Q4H PRN for SHORTNESS OF BREATH, (Reported) Albuterol Sulfate (Albuterol Sulfate) 2.5 Mg/0.5 Ml Vial.neb, 2.5 MG INH TID PRN for SOB/WHEEZING, (Reported) Allergies Coded Allergies: Sulfa (Sulfonamide Antibiotics) (Verified Allergy, Intermediate, "temp 107", 05/21/19) SEAN STANLEY DO Mar 28, 2020 20:51
== END 2020-03-28 19:04 | disposition home or self-care (01) | DRG 189 ==
LOC: M ED 10:21 → M ED INP 15:30 → M 4MAIN 03-27 03:51
PROVIDERS: ADMIT Internal Medicine; ATTEND Internal Medicine
DX: J96.21 Acute and chronic respiratory failure with hypoxia (principal); J44.1 Chronic obstructive pulmonary disease with (acute) exacerbation; E11.9 Type 2 diabetes mellitus without complications; I10 Essential (primary) hypertension; E78.5 Hyperlipidemia, unspecified; G47.33 Obstructive sleep apnea (adult) (pediatric); Z79.899 Other long term (current) drug therapy; Z88.2 Allergy status to sulfonamides; Z87.891 Personal history of nicotine dependence; E66.9 Obesity, unspecified; Z99.81 Dependence on supplemental oxygen

== ENCOUNTER → 2020-08-24 | Outpatient (REF) | payer MEDICARE, MEDICAID ==
[~2020-08-24] MED LIST changes: +HYDR-3490 PO; -HYDR25TAB PO; +PANT40TA29 PO
[2020-08-24 16:41] LABS: BASO # 0.1 10^3/uL (0.0-0.2); BASO % 0.9 % (0.0-1.0); EOS # 0.3 10^3/uL (0.0-0.5); HEMATOCRIT 44.5 % (42.0-52.0); HEMOGLOBIN 14.2 g/dl (13.5-17.5); LYMPH # 1.5 10^3/uL (1.5-5.0); LYMPH % 23.8 % (24.0-44.0); MEAN CORPUSCULAR HEMOGLOBIN 28.2 pg (27.0-33.0); MEAN CORPUSCULAR HGB CONC 31.9 g/dl (32.0-36.5); MEAN CORPUSCULAR VOLUME 88.5 fl (80.0-96.0); MONO # 0.8 10^3/uL (0.0-0.8); MONO % 11.9 % (2.0-8.0); NEUTROPHILS # 3.8 10^3/uL (1.5-8.5); NEUTROPHILS % 59.2 % (36.0-66.0); PLATELET COUNT, AUTOMATED 176 10^3/uL (150-450); RED BLOOD COUNT 5.03 10^6/uL (4.30-6.10); WHITE BLOOD COUNT 6.5 10^3/uL (4.0-10.0)
[2020-08-24 17:13] LABS: HEMOGLOBIN A1c 6.5 %
[2020-08-24 17:21] LABS: ALBUMIN 3.7 GM/DL (3.2-5.2); ALT/SGPT 33 U/L (12-78); BILIRUBIN,TOTAL 0.5 MG/DL (0.2-1.0); BLOOD UREA NITROGEN 24 MG/DL (7-18); CALCIUM LEVEL 9.3 MG/DL (8.8-10.2); CARBON DIOXIDE LEVEL 31 MEQ/L (21-32); CHLORIDE LEVEL 107 MEQ/L (98-107); CHOLESTEROL LEVEL 157 MG/DL (<200); CHOLESTEROL RISK RATIO 3.078 (<5); CREATININE FOR GFR 0.78 MG/DL (0.70-1.30); FREE T4 0.97 NG/DL (0.76-1.46); GLOMERULAR FILTRATION RATE > 60.0 (>49); GLUCOSE, FASTING 105 MG/DL (70-100); HDL CHOLESTEROL 51 MG/DL (>40); LDL CHOLESTEROL 89 MG/DL (<100); NON-HDL-C 106 MG/DL; POTASSIUM SERUM 4.5 MEQ/L (3.5-5.1); SODIUM LEVEL 142 MEQ/L (136-145); TOTAL PROTEIN 6.6 GM/DL (6.4-8.2); TRIGLYCERIDES LEVEL 85 MG/DL (<150)
== END ==
LOC: M SFHCCAPE 07:36
PROVIDERS: ATTEND Physician Assistant
DX: E78.5 Hyperlipidemia, unspecified (principal); I10 Essential (primary) hypertension; E11.9 Type 2 diabetes mellitus without complications

== ENCOUNTER → 2020-08-26 | Outpatient (REF) | payer MEDICARE, MEDICAID ==
[2020-08-26 17:12] LABS: MALB URINE SIEMENS 9.3 MG/L; MAU/CREAT RATIO 5.6 MCG/MG (0.0-30.0)
== END ==
LOC: M SFHCCAPE 15:46
PROVIDERS: ATTEND Physician Assistant
DX: E11.9 Type 2 diabetes mellitus without complications (principal)

== ENCOUNTER → 2021-02-28 | Outpatient (REF) | payer MEDICARE, MEDICAID ==
[2021-02-28 16:28] LABS: BASO # 0.1 10^3/uL (0.0-0.2); BASO % 0.9 % (0.0-1.0); EOS # 0.3 10^3/uL (0.0-0.5); EOS % 4.6 % (0.0-3.0); HEMATOCRIT 44.9 % (42.0-52.0); HEMOGLOBIN 14.1 g/dl (13.5-17.5); LYMPH # 1.5 10^3/uL (1.5-5.0); LYMPH % 21.8 % (24.0-44.0); MEAN CORPUSCULAR HEMOGLOBIN 28.9 pg (27.0-33.0); MEAN CORPUSCULAR HGB CONC 31.4 g/dl (32.0-36.5); MONO # 0.9 10^3/uL (0.0-0.8); MONO % 12.9 % (2.0-8.0); NEUTROPHILS % 59.5 % (36.0-66.0); PLATELET COUNT, AUTOMATED 168 10^3/uL (150-450); RED BLOOD COUNT 4.88 10^6/uL (4.30-6.10); WHITE BLOOD COUNT 6.8 10^3/uL (4.0-10.0)
[2021-02-28 19:13] LABS: HEMOGLOBIN A1c 6.1 %
[2021-02-28 19:53] LABS: ALBUMIN 3.9 GM/DL (3.2-5.2); ALT/SGPT 32 U/L (12-78); BILIRUBIN,TOTAL 0.4 MG/DL (0.2-1.0); BLOOD UREA NITROGEN 22 MG/DL (7-18); CALCIUM LEVEL 9.6 MG/DL (8.8-10.2); CARBON DIOXIDE LEVEL 31 MEQ/L (21-32); CHLORIDE LEVEL 105 MEQ/L (98-107); CHOLESTEROL LEVEL 175 MG/DL (<200); CREATININE FOR GFR 0.84 MG/DL (0.70-1.30); GLOMERULAR FILTRATION RATE > 60.0 (>49); GLUCOSE, FASTING 128 MG/DL (70-100); HDL CHOLESTEROL 57 MG/DL (>40); LDL CHOLESTEROL 88 MG/DL (<100); NON-HDL-C 118 MG/DL; POTASSIUM SERUM 4.8 MEQ/L (3.5-5.1); SODIUM LEVEL 141 MEQ/L (136-145); TOTAL 25(OH) VITAMIN D 40.8 NG/ML (30.0-100.0); TOTAL PROTEIN 6.7 GM/DL (6.4-8.2); TRIGLYCERIDES LEVEL 148 MG/DL (<150)
== END ==
LOC: M SFHCCAPE 07:46
PROVIDERS: ATTEND Physician Assistant
DX: I10 Essential (primary) hypertension (principal); E11.9 Type 2 diabetes mellitus without complications; Z12.5 Encounter for screening for malignant neoplasm of prostate; Z79.899 Other long term (current) drug therapy
CPT/HCPCS: 80053; 80061; 82306; 83036; 84443; 85025; G0103

== ENCOUNTER → 2021-05-05 | Outpatient (CLI) | payer MEDICARE, MEDICAID ==
[~2021-05-05] MED LIST changes: +LOSA50TA28 PO; -LOSA50TA88 PO
== END ==
LOC: M RAD 11:21
PROVIDERS: ATTEND Nurse Practitioner Family
DX: Z12.2 Encounter for screening for malignant neoplasm of respiratory organs (principal); Z87.891 Personal history of nicotine dependence

== ENCOUNTER 2021-07-08 10:36 | Emergency (ER) | payer MEDICARE, MEDICAID ==
[~2021-07-08] VITALS: Ht 175.3 cm; Wt 111.1 kg
[2021-07-08] MEDS ORDERED: NS 1,000 ML IV SCH (11:15)
[2021-07-08 11:28] LABS: BASO # 0.1 10^3/uL (0.0-0.2); BASO % 0.7 % (0.0-1.0); EOS # 0.1 10^3/uL (0.0-0.5); EOS % 1.3 % (0.0-3.0); HEMATOCRIT 46.6 % (42.0-52.0); HEMOGLOBIN 15.3 g/dl (13.5-17.5); LYMPH # 0.9 10^3/uL (1.5-5.0); LYMPH % 12.2 % (24.0-44.0); MEAN CORPUSCULAR HEMOGLOBIN 28.8 pg (27.0-33.0); MEAN CORPUSCULAR HGB CONC 32.8 g/dl (32.0-36.5); MEAN CORPUSCULAR VOLUME 87.6 fl (80.0-96.0); MONO # 1.1 10^3/uL (0.0-0.8); MONO % 14.9 % (2.0-8.0); NEUTROPHILS # 5.1 10^3/uL (1.5-8.5); NEUTROPHILS % 70.8 % (36.0-66.0); PLATELET COUNT, AUTOMATED 162 10^3/uL (150-450); RED BLOOD COUNT 5.32 10^6/uL (4.30-6.10); WHITE BLOOD COUNT 7.2 10^3/uL (4.0-10.0)
[2021-07-08 11:58] LABS: ALBUMIN 3.8 GM/DL (3.2-5.2); BILIRUBIN,DIRECT 0.1 MG/DL (0.0-0.2); BILIRUBIN,TOTAL 0.6 MG/DL (0.2-1.0); TOTAL PROTEIN 7.2 GM/DL (6.4-8.2)
[2021-07-08 12:26] LABS: RSV AMPLIFICATION NEGATIVE (NEGATIVE)
[2021-07-08] MEDS ORDERED: NS 1,000 ML IV ONE (13:45)
[2021-07-08] MEDS ORDERED: ZITHTAB PO (13:52)
[2021-07-08 14:30] VITALS: BP 132/58
== END 2021-07-08 14:51 | disposition home or self-care (01) ==
LOC: M ED 10:36
DX: A08.0 Rotaviral enteritis (principal); A04.5 Campylobacter enteritis; E11.9 Type 2 diabetes mellitus without complications; I10 Essential (primary) hypertension; J44.9 Chronic obstructive pulmonary disease, unspecified; I51.7 Cardiomegaly; Z87.891 Personal history of nicotine dependence; Z79.4 Long term (current) use of insulin; Z79.51 Long term (current) use of inhaled steroids; Z79.899 Other long term (current) drug therapy

== ENCOUNTER → 2021-08-29 | Outpatient (REF) | payer MEDICARE, MEDICAID ==
[~2021-08-29] MED LIST changes: +ALBU2.5V10 NEB; -ALBU83IN NEB; +ZITHTAB PO
[2021-08-29 16:29] LABS: BASO # 0.1 10^3/uL (0.0-0.2); BASO % 0.9 % (0.0-1.0); EOS # 0.4 10^3/uL (0.0-0.5); EOS % 5.3 % (0.0-3.0); HEMATOCRIT 42.2 % (42.0-52.0); HEMOGLOBIN 13.4 g/dl (13.5-17.5); LYMPH # 1.5 10^3/uL (1.5-5.0); LYMPH % 18.8 % (24.0-44.0); MEAN CORPUSCULAR HEMOGLOBIN 28.9 pg (27.0-33.0); MEAN CORPUSCULAR HGB CONC 31.8 g/dl (32.0-36.5); MEAN CORPUSCULAR VOLUME 91.1 fl (80.0-96.0); MONO # 0.9 10^3/uL (0.0-0.8); MONO % 10.6 % (2.0-8.0); NEUTROPHILS # 5.2 10^3/uL (1.5-8.5); NEUTROPHILS % 64.2 % (36.0-66.0); PLATELET COUNT, AUTOMATED 180 10^3/uL (150-450); RED BLOOD COUNT 4.63 10^6/uL (4.30-6.10); WHITE BLOOD COUNT 8.1 10^3/uL (4.0-10.0)
[2021-08-29 17:02] LABS: ALBUMIN 3.8 GM/DL (3.2-5.2); ALT/SGPT 28 U/L (12-78); BILIRUBIN,TOTAL 0.3 MG/DL (0.2-1.0); BLOOD UREA NITROGEN 21 MG/DL (7-18); CALCIUM LEVEL 9.8 MG/DL (8.8-10.2); CARBON DIOXIDE LEVEL 30 MEQ/L (21-32); CHLORIDE LEVEL 107 MEQ/L (98-107); CHOLESTEROL LEVEL 175 MG/DL (<200); CHOLESTEROL RISK RATIO 2.916 (<5); CREATININE FOR GFR 0.85 MG/DL (0.70-1.30); GLOMERULAR FILTRATION RATE > 60.0 (>42); GLUCOSE, FASTING 124 MG/DL (70-100); HDL CHOLESTEROL 60 MG/DL (>40); LDL CHOLESTEROL 90 MG/DL (<100); NON-HDL-C 115 MG/DL; POTASSIUM SERUM 4.7 MEQ/L (3.5-5.1); SODIUM LEVEL 143 MEQ/L (136-145); TOTAL 25(OH) VITAMIN D 44.3 NG/ML (30.0-100.0); TOTAL PROTEIN 6.9 GM/DL (6.4-8.2); TRIGLYCERIDES LEVEL 126 MG/DL (<150)
[2021-08-29 17:47] LABS: HEMOGLOBIN A1c 5.9 %
[2021-08-31 17:14] LABS: MALB URINE SIEMENS 5.7 MG/L; MAU/CREAT RATIO 5.2 MCG/MG (0.0-30.0)
== END ==
LOC: M SFHCCAPE 07:32
PROVIDERS: ATTEND Physician Assistant
DX: E11.9 Type 2 diabetes mellitus without complications (principal); Z79.899 Other long term (current) drug therapy

== ENCOUNTER → 2022-02-28 | Outpatient (REF) | payer MEDICARE, MEDICAID ==
[2022-02-28 17:50] LABS: BASO # 0.1 10^3/uL (0.0-0.2); BASO % 0.9 % (0.0-1.0); EOS # 0.3 10^3/uL (0.0-0.5); EOS % 4.3 % (0.0-3.0); HEMATOCRIT 46.2 % (42.0-52.0); HEMOGLOBIN 14.3 g/dl (13.5-17.5); LYMPH # 1.8 10^3/uL (1.5-5.0); LYMPH % 25.3 % (24.0-44.0); MEAN CORPUSCULAR HEMOGLOBIN 28.5 pg (27.0-33.0); MONO # 0.7 10^3/uL (0.0-0.8); MONO % 10.5 % (2.0-8.0); NEUTROPHILS # 4.1 10^3/uL (1.5-8.5); NEUTROPHILS % 58.9 % (36.0-66.0); PLATELET COUNT, AUTOMATED 155 10^3/uL (150-450); RED BLOOD COUNT 5.02 10^6/uL (4.30-6.10); WHITE BLOOD COUNT 6.9 10^3/uL (4.0-10.0)
[2022-02-28 18:25] LABS: ALBUMIN 3.7 G/DL (3.2-5.2); ALKALINE PHOSPHATASE 78 U/L (46-116); ALT/SGPT 28 U/L (7.0-40); AST/SGOT 22 U/L (<34); BILIRUBIN,TOTAL 0.5 MG/DL (0.3-1.2); BLOOD UREA NITROGEN 27 MG/DL (9-23); CALCIUM LEVEL 9.5 MG/DL (8.3-10.6); CARBON DIOXIDE LEVEL 30 MMOL/L (20-31); CHLORIDE LEVEL 104 MMOL/L (98-107); CHOLESTEROL LEVEL 161 MG/DL (<200); CHOLESTEROL RISK RATIO 2.89 (<5); CREATININE FOR GFR 0.81 MG/DL (0.70-1.30); GLOMERULAR FILTRATION RATE > 60.0 (>42); GLUCOSE, FASTING 133 MG/DL (74-106); HDL CHOLESTEROL 55.7 MG/DL (>40); LDL CHOLESTEROL 85.3 MG/DL (<100); NON-HDL-C 105 MG/DL; SODIUM LEVEL 141 MMOL/L (136-145); TOTAL PROTEIN 6.7 G/DL (5.7-8.2); TRIGLYCERIDES LEVEL 100 MG/DL (<150)
== END ==
LOC: M SFHCCAPE 07:47
PROVIDERS: ATTEND Physician Assistant
DX: E11.69 Type 2 diabetes mellitus with other specified complication (principal)

== ENCOUNTER → 2022-07-12 | Outpatient (CLI) | payer MEDICAID, MEDICARE | LOC: M RAD 08:57 | PROVIDERS: ATTEND Nurse Practitioner Family | DX: Z12.2 Encounter for screening for malignant neoplasm of respiratory organs (principal); Z87.891 Personal history of nicotine dependence; J84.10 Pulmonary fibrosis, unspecified; I77.810 Thoracic aortic ectasia ==

== ENCOUNTER → 2022-08-29 | Outpatient (REF) | payer MEDICARE, MEDICAID ==
[2022-08-29 18:54] LABS: BASO # 0.1 10^3/uL (0.0-0.2); BASO % 1.1 % (0.0-1.0); EOS # 0.4 10^3/uL (0.0-0.5); EOS % 6.3 % (0.0-3.0); HEMATOCRIT 45.4 % (42.0-52.0); HEMOGLOBIN 14.6 g/dl (13.5-17.5); LYMPH # 1.5 10^3/uL (1.5-5.0); MEAN CORPUSCULAR HEMOGLOBIN 29.1 pg (27.0-33.0); MEAN CORPUSCULAR HGB CONC 32.2 g/dl (32.0-36.5); MEAN CORPUSCULAR VOLUME 90.6 fl (80.0-96.0); MONO # 0.8 10^3/uL (0.0-0.8); MONO % 12.3 % (2.0-8.0); NEUTROPHILS # 3.6 10^3/uL (1.5-8.5); NEUTROPHILS % 56.8 % (36.0-66.0); PLATELET COUNT, AUTOMATED 165 10^3/uL (150-450); RED BLOOD COUNT 5.01 10^6/uL (4.30-6.10); WHITE BLOOD COUNT 6.4 10^3/uL (4.0-10.0)
[2022-08-29 19:15] LABS: ALBUMIN 3.7 G/DL (3.2-5.2); ALKALINE PHOSPHATASE 82 U/L (46-116); ALT/SGPT 33 U/L (7.0-40); AST/SGOT 17 U/L (<34); BILIRUBIN,TOTAL 0.3 MG/DL (0.3-1.2); BLOOD UREA NITROGEN 24 MG/DL (9-23); CARBON DIOXIDE LEVEL 29 MMOL/L (20-31); CHLORIDE LEVEL 105 MMOL/L (98-107); CHOLESTEROL LEVEL 162 MG/DL (<200); CHOLESTEROL RISK RATIO 3.07 (<5); CREATININE FOR GFR 0.85 MG/DL (0.70-1.30); GLOMERULAR FILTRATION RATE > 60.0 (>42); GLUCOSE, FASTING 116 MG/DL (74-106); HDL CHOLESTEROL 52.6 MG/DL (>40); LDL CHOLESTEROL 88.6 MG/DL (<100); NON-HDL-C 109.4 MG/DL; POTASSIUM SERUM 4.8 MMOL/L (3.5-5.1); SODIUM LEVEL 141 MMOL/L (136-145); TOTAL PROTEIN 6.5 G/DL (5.7-8.2); TRIGLYCERIDES LEVEL 104 MG/DL (<150)
[2022-08-29 19:47] LABS: HEMOGLOBIN A1c 6.3 % (4.0-6.0)
== END ==
LOC: M SFHCCAPE 07:30
PROVIDERS: ATTEND Physician Assistant
DX: I10 Essential (primary) hypertension (principal); E11.69 Type 2 diabetes mellitus with other specified complication; E78.5 Hyperlipidemia, unspecified

== ENCOUNTER → 2023-04-02 | Outpatient (REF) | payer MEDICARE ==
[2023-04-02 18:05] LABS: BASO # 0.1 10^3/uL (0.0-0.2); BASO % 0.8 % (0.0-1.0); EOS # 0.4 10^3/uL (0.0-0.5); EOS % 5.6 % (0.0-3.0); HEMATOCRIT 45.9 % (42.0-52.0); HEMOGLOBIN 14.6 g/dl (13.5-17.5); LYMPH # 1.6 10^3/uL (1.5-5.0); LYMPH % 20.8 % (24.0-44.0); MEAN CORPUSCULAR HEMOGLOBIN 29.3 pg (27.0-33.0); MEAN CORPUSCULAR HGB CONC 31.8 g/dl (32.0-36.5); MONO # 0.9 10^3/uL (0.0-0.8); MONO % 11.8 % (2.0-8.0); NEUTROPHILS # 4.7 10^3/uL (1.5-8.5); NEUTROPHILS % 60.9 % (36.0-66.0); PLATELET COUNT, AUTOMATED 149 10^3/uL (150-450); RED BLOOD COUNT 4.99 10^6/uL (4.30-6.10); WHITE BLOOD COUNT 7.7 10^3/uL (4.0-10.0)
[2023-04-02 18:57] LABS: ALBUMIN 3.6 G/DL (3.2-5.2); ALKALINE PHOSPHATASE 83 U/L (46-116); ALT/SGPT 33 U/L (7.0-40); AST/SGOT 22 U/L (<34); BILIRUBIN,TOTAL 0.3 MG/DL (0.3-1.2); BLOOD UREA NITROGEN 23 MG/DL (9-23); CALCIUM LEVEL 8.8 MG/DL (8.3-10.6); CARBON DIOXIDE LEVEL 29 MMOL/L (20-31); CHLORIDE LEVEL 104 MMOL/L (98-107); CREATININE FOR GFR 0.76 MG/DL (0.70-1.30); GLOMERULAR FILTRATION RATE > 60.0 (>42); GLUCOSE, FASTING 151 MG/DL (74-106); POTASSIUM SERUM 4.9 MMOL/L (3.5-5.1); SODIUM LEVEL 141 MMOL/L (136-145); TOTAL PROTEIN 6.6 G/DL (5.7-8.2)
== END ==
LOC: M LABDRWCV 16:45
PROVIDERS: ATTEND Internal Medicine Cardiovascular Disease
DX: R06.02 Shortness of breath (principal); I11.0 Hypertensive heart disease with heart failure; I27.81 Cor pulmonale (chronic)

== ENCOUNTER → 2023-04-02 | Outpatient (REF) | payer MEDICARE ==
[2023-04-02 17:35] LABS: CHOLESTEROL RISK RATIO 2.34 (<5); HDL CHOLESTEROL 56.8 MG/DL (>40); NON-HDL-C 76.2 MG/DL; PSA SCREENING 0.45 NG/ML (< 4.00)
[2023-04-02 17:42] LABS: HEMOGLOBIN A1c 6.4 % (4.0-6.0)
== END ==
LOC: M SFHCCAPE 07:44
PROVIDERS: ATTEND Physician Assistant Medical
DX: Z00.00 Encounter for general adult medical examination without abnormal findings (principal); I10 Essential (primary) hypertension; E78.5 Hyperlipidemia, unspecified; E11.69 Type 2 diabetes mellitus with other specified complication; Z12.5 Encounter for screening for malignant neoplasm of prostate
CPT/HCPCS: 80061; 83036; G0103

== ENCOUNTER → 2023-04-25 | Outpatient (CLI) | payer MEDICARE | LOC: M SLEEP 20:00 | PROVIDERS: ATTEND Nurse Practitioner Family | DX: G47.33 Obstructive sleep apnea (adult) (pediatric) (principal); R40.0 Somnolence ==

== ENCOUNTER → 2023-07-25 | Outpatient (CLI) | payer MEDICARE | LOC: M RAD 07:30 | PROVIDERS: ATTEND Nurse Practitioner Family | DX: Z12.2 Encounter for screening for malignant neoplasm of respiratory organs (principal); Z87.891 Personal history of nicotine dependence ==

== ENCOUNTER → 2023-10-08 | Outpatient (REF) | payer MEDICARE ==
[2023-10-08 17:34] LABS: BASO # 0.1 10^3/uL (0.0-0.2); BASO % 0.9 % (0.0-1.0); EOS # 0.4 10^3/uL (0.0-0.5); EOS % 5.2 % (0.0-3.0); HEMATOCRIT 42.4 % (42.0-52.0); HEMOGLOBIN 13.8 g/dl (13.5-17.5); LYMPH # 1.4 10^3/uL (1.5-5.0); LYMPH % 20.6 % (24.0-44.0); MEAN CORPUSCULAR HEMOGLOBIN 29.6 pg (27.0-33.0); MEAN CORPUSCULAR HGB CONC 32.5 g/dl (32.0-36.5); MEAN CORPUSCULAR VOLUME 90.8 fl (80.0-96.0); MONO # 0.7 10^3/uL (0.0-0.8); MONO % 9.9 % (2.0-8.0); NEUTROPHILS # 4.2 10^3/uL (1.5-8.5); PLATELET COUNT, AUTOMATED 149 10^3/uL (150-450); RED BLOOD COUNT 4.67 10^6/uL (4.30-6.10); WHITE BLOOD COUNT 6.7 10^3/uL (4.0-10.0)
[2023-10-08 18:25] LABS: ALBUMIN 3.9 G/DL (3.2-5.2); ALKALINE PHOSPHATASE 75 U/L (46-116); ALT/SGPT 27 U/L (7.0-40); AST/SGOT 14 U/L (<34); BILIRUBIN,TOTAL 0.5 MG/DL (0.3-1.2); BLOOD UREA NITROGEN 22 MG/DL (9-23); CALCIUM LEVEL 9.2 MG/DL (8.3-10.6); CARBON DIOXIDE LEVEL 26 MMOL/L (20-31); CHLORIDE LEVEL 106 MMOL/L (98-107); CREATININE FOR GFR 0.83 MG/DL (0.70-1.30); GLOMERULAR FILTRATION RATE > 60.0 (>42); GLUCOSE, FASTING 139 MG/DL (74-106); POTASSIUM SERUM 4.2 MMOL/L (3.5-5.1); SODIUM LEVEL 141 MMOL/L (136-145); TOTAL PROTEIN 6.4 G/DL (5.7-8.2)
== END ==
LOC: M LABDRAWC 16:36
PROVIDERS: ATTEND Internal Medicine Cardiovascular Disease
DX: R06.02 Shortness of breath (principal); I35.8 Other nonrheumatic aortic valve disorders; I25.10 Atherosclerotic heart disease of native coronary artery without angina pectoris; I11.0 Hypertensive heart disease with heart failure; I27.81 Cor pulmonale (chronic)

== ENCOUNTER → 2023-10-08 | Outpatient (REF) | payer MEDICARE ==
[2023-10-08 17:14] LABS: ALBUMIN 3.9 G/DL (3.2-5.2); ALKALINE PHOSPHATASE 75 U/L (46-116); ALT/SGPT 26 U/L (7.0-40); AST/SGOT 15 U/L (<34); BILIRUBIN,TOTAL 0.5 MG/DL (0.3-1.2); BLOOD UREA NITROGEN 22 MG/DL (9-23); CALCIUM LEVEL 9.2 MG/DL (8.3-10.6); CARBON DIOXIDE LEVEL 27 MMOL/L (20-31); CHLORIDE LEVEL 106 MMOL/L (98-107); CREATININE FOR GFR 0.81 MG/DL (0.70-1.30); GLOMERULAR FILTRATION RATE > 60.0 (>42); GLUCOSE, FASTING 139 MG/DL (74-106); POTASSIUM SERUM 4.2 MMOL/L (3.5-5.1); SODIUM LEVEL 140 MMOL/L (136-145); TOTAL PROTEIN 6.3 G/DL (5.7-8.2)
[2023-10-08 17:34] LABS: BASO # 0.1 10^3/uL (0.0-0.2); EOS # 0.4 10^3/uL (0.0-0.5); EOS % 5.1 % (0.0-3.0); HEMATOCRIT 43.5 % (42.0-52.0); LYMPH # 1.3 10^3/uL (1.5-5.0); LYMPH % 19.7 % (24.0-44.0); MEAN CORPUSCULAR HEMOGLOBIN 29.2 pg (27.0-33.0); MEAN CORPUSCULAR HGB CONC 32.2 g/dl (32.0-36.5); MEAN CORPUSCULAR VOLUME 90.6 fl (80.0-96.0); MONO # 0.7 10^3/uL (0.0-0.8); MONO % 10.7 % (2.0-8.0); NEUTROPHILS # 4.3 10^3/uL (1.5-8.5); NEUTROPHILS % 63.2 % (36.0-66.0); PLATELET COUNT, AUTOMATED 156 10^3/uL (150-450); WHITE BLOOD COUNT 6.8 10^3/uL (4.0-10.0)
[2023-10-08 18:13] LABS: HEMOGLOBIN A1c 6.3 % (4.0-6.0)
== END ==
LOC: M SFHCCAPE 07:50
PROVIDERS: ATTEND Physician Assistant Medical
DX: E11.69 Type 2 diabetes mellitus with other specified complication (principal); J44.1 Chronic obstructive pulmonary disease with (acute) exacerbation

== ENCOUNTER → 2023-10-11 | Outpatient (REF) | payer MEDICARE ==
[2023-10-11 17:58] LABS: CREATININE, URINE 25.1 MG/DL
[2023-10-11 17:59] LABS: MALB URINE SIEMENS < 3.0 MG/L; MAU/CREAT RATIO 11.9 MCG/MG (0.0-30.0)
== END ==
LOC: M SFHCCAPE 16:33
PROVIDERS: ATTEND Physician Assistant Medical
DX: E11.69 Type 2 diabetes mellitus with other specified complication (principal)

== ENCOUNTER 2023-11-22 13:20 | Inpatient (IN) | payer MEDICARE ==
[~2023-11-22] VITALS: Ht 177.8 cm; Wt 109.2 kg
[2023-11-22] MEDS ORDERED: SPIR-10 PO (13:44)
[2023-11-22] MEDS ORDERED: ATOR1TAB21 PO (13:44)
[2023-11-22] MEDS ORDERED: TORS10TA3 PO (13:44)
[2023-11-22 15:14] LABS: VENOUS BASE EXCESS 0.9 (-2.0-2.0); VENOUS HCO3 26.2 MMOL/L (23.0-27.0); VENOUS O2 SATURATION 63.6 % (60.0-80.0); VENOUS PARTIAL PRESSURE O2 31.4 mmHg (30.0-50.0); VENOUS PH 7.392 UNITS (7.330-7.430); VENOUS STANDARD HCO3 24.3 MMOL/L; VENOUS TOTAL CO2 27.5 MMOL/L (24.0-28.0)
[2023-11-22] MEDS: ACETAMINOPHEN 325 MG TAB PO ONE (15:14)
[2023-11-22] MEDS: methylPREDNISolone 125MG 2ML VIAL IV ONE (15:15)
[2023-11-22] MEDS: NS 500 ML IV ONE (15:15)
[2023-11-22 15:24] LABS: BASO # 0.1 10^3/uL (0.0-0.2); BASO % 0.7 % (0.0-1.0); EOS # 0.1 10^3/uL (0.0-0.5); EOS % 1.4 % (0.0-3.0); HEMOGLOBIN 15.5 g/dl (13.5-17.5); LYMPH # 0.8 10^3/uL (1.5-5.0); LYMPH % 8.7 % (24.0-44.0); MEAN CORPUSCULAR HEMOGLOBIN 30.6 pg (27.0-33.0); MEAN CORPUSCULAR HGB CONC 33.7 g/dl (32.0-36.5); MEAN CORPUSCULAR VOLUME 90.7 fl (80.0-96.0); MONO # 0.8 10^3/uL (0.0-0.8); NEUTROPHILS # 7.3 10^3/uL (1.5-8.5); NEUTROPHILS % 79.7 % (36.0-66.0); PLATELET COUNT, AUTOMATED 148 10^3/uL (150-450); RED BLOOD COUNT 5.07 10^6/uL (4.30-6.10); WHITE BLOOD COUNT 9.1 10^3/uL (4.0-10.0)
[2023-11-22 15:36] LABS: INR 1.12; PROTHROMBIN TIME 14.1 SECONDS (12.5-14.5)
[2023-11-22] MEDS: IPRATROPIUM 0.5MG/ALBUTEROL 2.5MG INH SOL UD 3ML (DUONEB) NEB ONE (15:43)
[2023-11-22 15:46] LABS: ALBUMIN 4.3 G/DL (3.2-5.2); ALKALINE PHOSPHATASE 84 U/L (46-116); ALT/SGPT 25 U/L (7.0-40); AST/SGOT 14 U/L (<34); BILIRUBIN,DIRECT 0.2 MG/DL (<0.4); BILIRUBIN,TOTAL 0.5 MG/DL (0.3-1.2); CK-MB VALUE MASS < 1.0 NG/ML (<3.6); CPK CREATINE PHOSPHOKINASE 59 U/L (46-171); MB/CK RELATIVE INDEX 1.69 (< OR =4); TOTAL PROTEIN 7.4 G/DL (5.7-8.2)
[2023-11-22 15:48] LABS: THYROID STIMULATING HORMONE 0.782 uIU/ML (0.55-4.78); THYROXINE (T4) 7.4 UG/DL (4.5-10.9)
[2023-11-22] MEDS: ALBUTEROL SULFATE 2.5MG/0.5ML INH NEB SOLN NEB ONE (16:17)
[2023-11-22 16:20] LABS: RSV AMPLIFICATION NEGATIVE (NEGATIVE)
[2023-11-22] MEDS ORDERED: ALBUTEROL 90 MCG/ACT 8GM HFA INHALER INH PRN (17:40)
[2023-11-22] MEDS: DOXYCYCLINE HYCLATE 100MG TABLET PO ONE (17:45)
[2023-11-22] MEDS: cefTRIAXone SOD 1 GM in D5W MINI-BAG PLUS 50 ML IV ONE (17:46)
[2023-11-22 18:12] LABS: D-DIMER QUANT 0.43 ug/mL (<0.5); INR 1.12; PARTIAL THROMBOPLASTIN TIME 33.7 SECONDS (24.8-34.2); PROTHROMBIN TIME 14.1 SECONDS (12.5-14.5)
[2023-11-22 18:27] LABS: MAGNESIUM LEVEL 1.9 MG/DL (1.8-2.4)
[2023-11-22 18:28] LABS: ALBUMIN 4.1 G/DL (3.2-5.2); ALKALINE PHOSPHATASE 79 U/L (46-116); ALT/SGPT 23 U/L (7.0-40); AST/SGOT 15 U/L (<34); BILIRUBIN,TOTAL 0.6 MG/DL (0.3-1.2); BLOOD UREA NITROGEN 24 MG/DL (9-23); C REACTIVE PROTEIN QUANTITATIV 4.2 MG/DL (<1.0); CALCIUM LEVEL 9.4 MG/DL (8.3-10.6); CARBON DIOXIDE LEVEL 26 MMOL/L (20-31); CHLORIDE LEVEL 105 MMOL/L (98-107); CREATININE FOR GFR 0.88 MG/DL (0.70-1.30); GLOMERULAR FILTRATION RATE > 60.0 (>42); GLUCOSE, FASTING 165 MG/DL (74-106); POTASSIUM SERUM 4.4 MMOL/L (3.5-5.1); SODIUM LEVEL 137 MMOL/L (136-145); TOTAL PROTEIN 7.1 G/DL (5.7-8.2)
[2023-11-22 18:31] LABS: FERRITIN 152.8 NG/ML (10.5-307.3)
[2023-11-22] MEDS: BARICITINIB 2MG TABLET (OLUMIANT) FOR EUA PO SCH (20:10)
[2023-11-22] MEDS: ADVAIR HFA 230/21MCG INHALER INH SCH (20:10)
[2023-11-22] MEDS: REMDESIVIR 200 MG in NS 250 ML IV ONE (20:10)
[2023-11-22] MEDS: COMBIVENT RESPIMAT 100-20MCG INHALER 4GM INH SCH (20:10)
[2023-11-22 20:45] VITALS: O2SAT 92
[2023-11-22 20:48] VITALS: BP 130/69; TEMP 97.5; O2SAT 90
[2023-11-22] MEDS ORDERED: GLUCOSE 4 GM CHEW PO PRN (21:20)
[2023-11-22] MEDS ORDERED: GLUCAGON INJ 1MG VIAL SC PRN (21:20)
[2023-11-22] MEDS ORDERED: DEXTROSE 50% 50ML SYRINGE IV PRN (21:20)
[2023-11-22] MEDS ORDERED: THERTAB52 PO (22:10)
[2023-11-22] MEDS ORDERED: D 1010004 PO (22:12)
[2023-11-22] MEDS ORDERED: MAGN400T2 PO (22:12)
[2023-11-22] MEDS ORDERED: HOME MED LIST COMPLETE! XX SCH (22:15)
[2023-11-22] MEDS: ATORVASTATIN 10 MG TAB PO SCH (22:40)
[2023-11-22] MEDS: LOSARTAN 50MG TABLET PO SCH (22:41)
[2023-11-22 22:42] VITALS: BP 103/58; TEMP 98; O2SAT 94
[2023-11-22 23:00] VITALS: O2SAT 93
[2023-11-23] VITALS (25 sets, daily range): BP systolic 110–132; BP diastolic 53–67; TEMP 97.6–98.4; O2SAT 87–97
[2023-11-23 07:26] LABS: HEMATOCRIT 40.9 % (42.0-52.0); HEMOGLOBIN 13.7 g/dl (13.5-17.5); MEAN CORPUSCULAR HEMOGLOBIN 30.2 pg (27.0-33.0); MEAN CORPUSCULAR HGB CONC 33.5 g/dl (32.0-36.5); MEAN CORPUSCULAR VOLUME 90.3 fl (80.0-96.0); PLATELET COUNT, AUTOMATED 146 10^3/uL (150-450); RED BLOOD COUNT 4.53 10^6/uL (4.30-6.10); WHITE BLOOD COUNT 7.3 10^3/uL (4.0-10.0)
[2023-11-23 08:07] LABS: ALBUMIN 3.6 G/DL (3.2-5.2); ALKALINE PHOSPHATASE 68 U/L (46-116); ALT/SGPT 21 U/L (7.0-40); AST/SGOT 13 U/L (<34); BILIRUBIN,TOTAL 0.3 MG/DL (0.3-1.2); BLOOD UREA NITROGEN 23 MG/DL (9-23); CALCIUM LEVEL 8.9 MG/DL (8.3-10.6); CARBON DIOXIDE LEVEL 29 MMOL/L (20-31); CHLORIDE LEVEL 104 MMOL/L (98-107); CREATININE FOR GFR 0.79 MG/DL (0.70-1.30); GLOMERULAR FILTRATION RATE > 60.0 (>42); GLUCOSE, FASTING 168 MG/DL (74-106); POTASSIUM SERUM 4.8 MMOL/L (3.5-5.1); SODIUM LEVEL 136 MMOL/L (136-145); TOTAL PROTEIN 6.5 G/DL (5.7-8.2)
[2023-11-23] MEDS: INSULIN LISPRO (NovoLOG) PER UNIT SC SCH ×2 (09:17→20:17)
[2023-11-23] MEDS: DOXYCYCLINE HYCLATE 100MG TABLET PO SCH (09:18)
[2023-11-23] MEDS: ENOXAPARIN 40MG/0.4ML SYRINGE (J1650 PER 10MG) SC SCH (09:18)
[2023-11-23] MEDS: LEVEMIR (INSULIN DETEMIR) 1 UNITS/0.01ML SC SCH (09:18)
[2023-11-23] MEDS: TORSEMIDE 10 MG TABLET PO SCH (09:19)
[2023-11-23] MEDS: SPIRONOLACTONE 12.5MG PER 1/2 TABLET PO SCH (09:20)
[2023-11-23 13:18] LABS: PROCALCITONIN 0.28 ng/ml
[2023-11-23 13:20] LABS: PROCALCITONIN 0.25 ng/ml
[2023-11-23] MEDS: IPRATROPIUM 0.5MG/ALBUTEROL 2.5MG INH SOL UD 3ML (DUONEB) NEB SCH (16:12)
[2023-11-23] MEDS: cefTRIAXone SOD 1 GM in D5W MINI-BAG PLUS 50 ML IV SCH (18:02)
[2023-11-23] MEDS: REMDESIVIR 100 MG in NS 250 ML IV SCH (20:17)
[2023-11-24] VITALS (13 sets, daily range): BP systolic 106–167; BP diastolic 51–78; TEMP 96.9–98; O2SAT 88–98
[2023-11-24 05:32] LABS: HEMATOCRIT 39.4 % (42.0-52.0); HEMOGLOBIN 12.9 g/dl (13.5-17.5); MEAN CORPUSCULAR HEMOGLOBIN 29.9 pg (27.0-33.0); MEAN CORPUSCULAR HGB CONC 32.7 g/dl (32.0-36.5); MEAN CORPUSCULAR VOLUME 91.2 fl (80.0-96.0); PLATELET COUNT, AUTOMATED 145 10^3/uL (150-450); RED BLOOD COUNT 4.32 10^6/uL (4.30-6.10); WHITE BLOOD COUNT 9.3 10^3/uL (4.0-10.0)
[2023-11-24 06:04] LABS: ALBUMIN 3.2 G/DL (3.2-5.2); ALKALINE PHOSPHATASE 64 U/L (46-116); ALT/SGPT 19 U/L (7.0-40); AST/SGOT < 8 U/L (<34); BILIRUBIN,TOTAL 0.3 MG/DL (0.3-1.2); BLOOD UREA NITROGEN 24 MG/DL (9-23); CARBON DIOXIDE LEVEL 29 MMOL/L (20-31); CHLORIDE LEVEL 110 MMOL/L (98-107); CREATININE FOR GFR 0.75 MG/DL (0.70-1.30); GLOMERULAR FILTRATION RATE > 60.0 (>42); GLUCOSE, FASTING 143 MG/DL (74-106); POTASSIUM SERUM 4.7 MMOL/L (3.5-5.1); SODIUM LEVEL 142 MMOL/L (136-145)
[2023-11-25 03:38] VITALS: BP 115/59; TEMP 97.5; O2SAT 94
[2023-11-25 03:55] VITALS: O2SAT 91
[2023-11-25 05:03] LABS: HEMATOCRIT 39.1 % (42.0-52.0); HEMOGLOBIN 13.2 g/dl (13.5-17.5); MEAN CORPUSCULAR HEMOGLOBIN 30.7 pg (27.0-33.0); MEAN CORPUSCULAR HGB CONC 33.8 g/dl (32.0-36.5); MEAN CORPUSCULAR VOLUME 90.9 fl (80.0-96.0); PLATELET COUNT, AUTOMATED 161 10^3/uL (150-450); WHITE BLOOD COUNT 8.4 10^3/uL (4.0-10.0)
[2023-11-25 05:27] LABS: ALBUMIN 3.2 G/DL (3.2-5.2); ALKALINE PHOSPHATASE 63 U/L (46-116); ALT/SGPT 20 U/L (7.0-40); AST/SGOT 9 U/L (<34); BILIRUBIN,TOTAL 0.3 MG/DL (0.3-1.2); BLOOD UREA NITROGEN 25 MG/DL (9-23); CALCIUM LEVEL 8.6 MG/DL (8.3-10.6); CARBON DIOXIDE LEVEL 28 MMOL/L (20-31); CHLORIDE LEVEL 107 MMOL/L (98-107); CREATININE FOR GFR 0.72 MG/DL (0.70-1.30); GLOMERULAR FILTRATION RATE > 60.0 (>42); GLUCOSE, FASTING 113 MG/DL (74-106); POTASSIUM SERUM 4.2 MMOL/L (3.5-5.1); SODIUM LEVEL 139 MMOL/L (136-145); TOTAL PROTEIN 5.9 G/DL (5.7-8.2)
[2023-11-25 08:00] VITALS: O2SAT 92
[2023-11-25 08:09] VITALS: BP 147/65; TEMP 97.6; O2SAT 91
[2023-11-25 08:11] VITALS: BP 147/65
[2023-11-25] MEDS ORDERED: CEFD1CAP9 PO (09:57)
[2023-11-25] MEDS ORDERED: DOXY100T PO (09:57)
[2023-11-25] MEDS ORDERED: PRED20TA PO (09:58)
== END 2023-11-25 11:50 | disposition home or self-care (01) | DRG 177 ==
LOC: M ED 13:20 → M ED INP 17:01 → M ICU 20:40 → M PCU 11-23 21:29
PROVIDERS: ADMIT Internal Medicine; ATTEND Internal Medicine
PROC: XW033E5 Introduction of Remdesivir Anti-infective into Peripheral Vein, Percutaneous Approach, New Technology Group 5 (ICD-10-PCS; 2023-11-22)
PROC: 3E0333Z Introduction of Anti-inflammatory into Peripheral Vein, Percutaneous Approach (ICD-10-PCS; principal; 2023-11-23)
DX: U07.1 COVID-19 (principal); J96.21 Acute and chronic respiratory failure with hypoxia; J15.9 Unspecified bacterial pneumonia; J44.9 Chronic obstructive pulmonary disease, unspecified; J67.0 Farmer's lung; I10 Essential (primary) hypertension; E78.5 Hyperlipidemia, unspecified; E11.9 Type 2 diabetes mellitus without complications; G47.33 Obstructive sleep apnea (adult) (pediatric); E66.9 Obesity, unspecified; Z79.84 Long term (current) use of oral hypoglycemic drugs; Z79.899 Other long term (current) drug therapy; Z88.2 Allergy status to sulfonamides; Z99.81 Dependence on supplemental oxygen

== ENCOUNTER → 2024-01-31 | Outpatient (CLI) | payer MEDICARE ==
[~2024-01-31] MED LIST changes: +ATOR1TAB21 PO; +CEFD1CAP9 PO; +D 1010004 PO; +DOXY100T PO; +MAGN400T2 PO; +PRED20TA PO; +SPIR-10 PO; +THERTAB52 PO; +TORS10TA3 PO; -VITA500C19 PO; +VITA500C22 PO
== END ==
LOC: M PLAIMG 11:42
PROVIDERS: ATTEND Physician Assistant
DX: R91.8 Other nonspecific abnormal finding of lung field (principal)

== ENCOUNTER → 2024-04-07 | Outpatient (REF) | payer MEDICARE ==
[2024-04-07 13:46] LABS: BASO # 0.1 10^3/uL (0.0-0.2); BASO % 0.8 % (0.0-1.0); EOS # 0.3 10^3/uL (0.0-0.5); EOS % 3.9 % (0.0-3.0); HEMATOCRIT 46.4 % (42.0-52.0); HEMOGLOBIN 14.5 g/dl (13.5-17.5); LYMPH # 1.4 10^3/uL (1.5-5.0); LYMPH % 19.4 % (24.0-44.0); MEAN CORPUSCULAR HEMOGLOBIN 28.8 pg (27.0-33.0); MEAN CORPUSCULAR HGB CONC 31.3 g/dl (32.0-36.5); MEAN CORPUSCULAR VOLUME 92.2 fl (80.0-96.0); MONO # 0.8 10^3/uL (0.0-0.8); MONO % 10.6 % (2.0-8.0); NEUTROPHILS # 4.7 10^3/uL (1.5-8.5); PLATELET COUNT, AUTOMATED 153 10^3/uL (150-450); RED BLOOD COUNT 5.03 10^6/uL (4.30-6.10); WHITE BLOOD COUNT 7.3 10^3/uL (4.0-10.0)
[2024-04-07 14:00] LABS: HEMOGLOBIN A1c 6.6 % (4.0-6.0)
[2024-04-07 14:19] LABS: ALKALINE PHOSPHATASE 77 U/L (40-129); ALT/SGPT 28 U/L (7.0-40); AST/SGOT 19 U/L (<34); BILIRUBIN,TOTAL 0.4 MG/DL (0.3-1.2); BLOOD UREA NITROGEN 26 MG/DL (9-23); CALCIUM LEVEL 9.9 MG/DL (8.3-10.6); CARBON DIOXIDE LEVEL 32 MMOL/L (20-31); CHLORIDE LEVEL 106 MMOL/L (98-107); CHOLESTEROL LEVEL 150 MG/DL (<200); CHOLESTEROL RISK RATIO 2.28 (<5); CREATININE FOR GFR 0.84 MG/DL (0.70-1.30); GLOMERULAR FILTRATION RATE > 60.0 (>42); GLUCOSE, FASTING 140 MG/DL (74-106); HDL CHOLESTEROL 65.7 MG/DL (>40); LDL CHOLESTEROL 65.9 MG/DL (<100); NON-HDL-C 84.3 MG/DL; POTASSIUM SERUM 4.9 MMOL/L (3.5-5.1); PSA SCREENING 0.52 NG/ML (< 4.00); SODIUM LEVEL 144 MMOL/L (136-145); TRIGLYCERIDES LEVEL 92 MG/DL (<150)
== END ==
LOC: M SFHCCAPE 07:44
PROVIDERS: ATTEND Physician Assistant Medical
DX: Z00.00 Encounter for general adult medical examination without abnormal findings (principal); E78.5 Hyperlipidemia, unspecified; I10 Essential (primary) hypertension; E11.69 Type 2 diabetes mellitus with other specified complication; J44.1 Chronic obstructive pulmonary disease with (acute) exacerbation; Z12.5 Encounter for screening for malignant neoplasm of prostate
CPT/HCPCS: 80053; 80061; 83036; 85025; G0103

== ENCOUNTER → 2024-10-02 | Outpatient (REF) | payer MEDICARE ==
[2024-10-02 19:07] LABS: ESTIMATED AVERAGE GLUCOSE 143.0 MG/DL (60-110)
[2024-10-02 19:10] LABS: ALT/SGPT 22.0 U/L (7.0-40); AST/SGOT 20.0 U/L (<34); CALCIUM LEVEL 9.5 MG/DL (8.3-10.6); CARBON DIOXIDE LEVEL 29.0 MMOL/L (20-31); CHLORIDE LEVEL 107.0 MMOL/L (98-107); CREATININE FOR GFR 0.97 MG/DL (0.70-1.30); GLOMERULAR FILTRATION RATE 82.4 (>42); POTASSIUM SERUM 4.8 MMOL/L (3.5-5.1); SODIUM LEVEL 148.0 MMOL/L (136-145)
== END ==
LOC: M SFHCCAPE 08:00
PROVIDERS: ATTEND Physician Assistant Medical
DX: E11.69 Type 2 diabetes mellitus with other specified complication (principal); I10 Essential (primary) hypertension

== ENCOUNTER → 2024-10-06 | Outpatient (REF) | payer MEDICARE ==
[2024-10-06 17:31] LABS: CREATININE, URINE 18.0 MG/DL; MALB URINE SIEMENS < 3.0 MG/L
== END ==
LOC: M SFHCCAPE 16:47
PROVIDERS: ATTEND Physician Assistant Medical
DX: E11.69 Type 2 diabetes mellitus with other specified complication (principal)